=== PATIENT | male | born 1940 | race Caucasian/White ===

== ENCOUNTER 2016-11-29 19:39 | Inpatient (IN) | payer MEDICARE, OTHER ==
[~2016-11-29] VITALS: Ht 177.8 cm; Wt 76.2 kg
--- NOTE | ~2016-11-29 | ECHO ---
[facility] [address], [place] [address] Draft DATE OF STUDY: 11/30/2016 TYPE OF STUDY: Echocardiogram. REFERRING PHYSICIAN: Abigail Rubio MD INDICATION: Abnormal EKG and hypertension. PATIENT DATA: Height 177.8 cm, weight 81.7 kilograms. BSA 2.0 meter squared. CONCLUSIONS: 1. Overall, left ventricular systolic function is normal, with a visually estimated ejection fraction of 60% to 65%. 2. Mild, grade 1 left ventricular diastolic dysfunction is present. 3. The right ventricle is normal in size, with normal systolic function. 4. By evaluation of the color Doppler study, there is moderate aortic insufficiency. 5. The ascending aorta is moderately dilated, measuring 4.5 cm at the sinuses of Valsalva. FINDINGS: ECG rhythm: Normal sinus rhythm. STUDY: A 2-dimensional transthoracic echocardiogram with M-mode, spectral and color flow Doppler was performed. This was a technically adequate study: INTERPRETATION: 1. Left ventricle: Overall left ventricular systolic function is normal, with a visually estimated ejection fraction of 60% to 65%. The left ventricle is normal in cavitary dimensions, with mild concentric left ventricular hypertrophy. No regional wall motion abnormalities are noted. The diastolic filling pattern indicates mildly impaired relaxation, consistent with grade 1 diastolic dysfunction. 2. Right ventricle: The right ventricle is normal in size, with normal systolic function. 3. Left atrium: The left atrium is normal in size. 4. Right atrium: The right atrium is mildly dilated. 5. Aortic valve: The aortic valve is trileaflet, mildly thickened and calcified. There is no evidence of aortic stenosis. There is moderate aortic insufficiency, with an eccentric regurgitant jet directed below the anterior mitral leaflet. 6. Mitral valve: The mitral valve has moderate annular calcification, extending into the posterior mitral leaflet, which is moderately thickened and restricted. However, there is no evidence of mitral stenosis. The anterior leaflet is elongated and mildly thickened. The aortic PATIENT NAME: JEWELS DANIEL ECHOCARDIOGRAM DATE OF : 38 PHYSICIAN: ELLEN BOYER MD REPORT #: [id number] REPORT IS CONFIDENTIAL AND NOT TO BE RELEASED WITHOUT AUTHORIZATION [facility] [address], [place] [address] Draft insufficiency does not cause early closure of the mitral leaflets. 7. Tricuspid valve: The tricuspid valve is structurally normal, with no prolapse or stenosis. There is trace tricuspid regurgitation. The Doppler study reveals no evidence of pulmonary hypertension. The peak right ventricular systolic pressure (peak pulmonary artery systolic pressure), as measured by Doppler, is 29.9 mmHg. 8. Pulmonic valve: The pulmonic valve appears structurally normal. There is mild pulmonic insufficiency. 9. Pericardium: There is no pericardial effusion. 10. IVC/hepatic veins: The IVC was not well visualized. 11. Aorta: The ascending aorta was not well visualized. The sinuses of Valsalva are mildly dilated, measuring 4.5 cm. 12. Mass: No thrombi, vegetations or masses are identified. 13. Shunt: No atrial septal defect or ventricular septal defect is identified. MEASUREMENTS: Left ventricle 2-D measurements IVSd 1.2 cm, LVIDd 5.5 cm, LVPWd 1.3 cm, LVIDs 3.8 cm. Percent FS 31%, aortic diameter 4.5 cm, LV outflow tract diameter 2.5 cm, left atrial diameter 3.9 cm. Left atrial volume index 25.75 mL per meter squared. Right atrial diameter 5.7 cm. Right ventricle RVIDd 3.1 cm, IVC . Doppler findings: Mitral valve measurements E velocity 0.6 meters per second, mitral valve deceleration time 231 milliseconds. Mitral valve A velocity 1.0 meters per second. Mitral valve area 3.3 cm2. Lateral E prime 0.07 meters per second, lateral E/E prime 8.8, septal E prime 0.04 meters per second. Septal E/E prime 15.2. Tricuspid valve TRV max 2.2 meters per second, aortic valve LVOT V max 1.1 meters per second. LVOT max PG 5 mmHg. Aortic valve V max 2.1 meters per second, aortic valve max PG 17 mmHg. Aortic valve mean PG 10 mmHg, aortic valve area 2.5 cm2, aortic valve pressure half time 240 milliseconds. Ellen Boyer MD / [id number] P P PATIENT NAME: JEWELS DANIEL ECHOCARDIOGRAM DATE OF : 38 PHYSICIAN: ELLEN BOYER MD REPORT #: [id number] REPORT IS CONFIDENTIAL AND NOT TO BE RELEASED WITHOUT AUTHORIZATION
--- NOTE | 2016-11-29 19:10 | NUR ---
PT ARRIVED FROM [facility], PT ARRIVED WITH A NG TUBE IN PLACE AND IV NS IN STRAIGHT TUBING. MD ROY WAS CALLED AND HE IS ON HIS WAY TO ASSESS THIS PT. PT HAS A DX OF SBO. PT DENIES PAIN AT THIS TIME.
--- NOTE | 2016-11-29 20:06 | NUR ---
76YR OLD MAN ADMITTED FROM [facility] TO ROOM 112 VIA STRETCHER AND EMS CREW. PT IS ALERT, COOPERATIVE. MOVED TO BED WITH MIN ASSIST. NG TUBE IN PLACE AND SECURED IN PLACE WITH TAPE. CONNECTED TO LOW INTERMITTENT SUCTION. UNDRESSED AND PLACED INTO GOWN.ORIENTED TO ROOM AND CALL LIGHT. DR ROY NOTIFIED OFF ARRIVAL.
--- NOTE | 2016-11-29 21:53 | NUR ---
PT IS RESTING IN BED AT THIS TIME. PT STILL DENIES PAIN, PT HAS BOWEL SOUNDS IN ALL FOUR QUADRANTS, PT HAD A RUNNY BM X1. PT STATED THAT HE HAS BEEN HAVING RUNNY BM'S FOR THE PAST TWO MONTHS. PT ALSO VOIDED, URINE IS RAFY IN COLOR. ALL LUNG LOBES ARE CLEAR, HR HAS S1 AND S2. NO EDEMA OF ANY KIND HAS BEEN NOTED. ABD IS NOT DISTENDED.
--- NOTE | 2016-11-29 22:45 | NUR ---
1. BAG OF POTASSUM IS RUNNING. PT IS COMPLAINING OF HIS IV SITE HURTING. IV SITE IS STILL PATENT. I HAVE REDUCED POTASSIUM IV RATE FROM 100ML/HR TO 75ML/HR, AND IT IS RUNNING WITH HIS D5%LR @125ML/HR. MD VILLA IS AWARE AND IS OK WITH THIS. PT NOW HAS NO PAIN AT IV SITE.
--- NOTE | 2016-11-29 23:57 | NUR ---
PT IS ON TELE NOW DUE TO ABNORMAL EKG AND LOW POTASSIUM.
--- NOTE | 2016-11-30 01:40 | NUR ---
THUS FAR, NG TUBE HAD TO BE FLUSHED SEVERAL TIMES DUE TO CLOGGING. PT HAD AN EPISODE OF NAUSEA FOR WHICH 8MG OF IV ZOFRAN WAS GIVEN. SBP WAS 115 AND THEREFORE LOPRESSOR 50MG WAS HELD. PT AT THIS TIME IS RESTING IN BED.
--- NOTE | 2016-11-30 03:15 | NUR ---
PT THUS FAR HAD BM X3 VERY RUNNY WITH AND WITHOUT JUNO BLOOD, PT ALSO HAD 450ML OF NG TUBE OUTPUT THUS FAR, DARK RED TO BROWN IN COLOR. ALL QAUDRANTS AT THIS TIME ARE ABSENT OF BOWEL TONES. PT DENIES PAIN OR INCREASED ABD DISTENTION. WILL CONTIUNUE TO MOINITOR.
--- NOTE | 2016-11-30 04:41 | NUR ---
ASSISTED PT TO BATHROOM, BM X1 RUNNY WITH JUNO BLOOD, URINE OUTPUT HAS DECREASED IN THE PAST FEW HRS AND AT THIS TIME IS NOT ADEQUATE. WILL BLADDER SCAN AROUND 0500.
--- NOTE | 2016-11-30 04:59 | NUR ---
PT IS ON TELE #4 DUE TO ABNORMAL EKG. PT HAD SEVERAL BM'S THAT WERE ALWAYS RUNNY. SOME HAD JUNO BLOOD PRESENT IN THEM. URINE OUTPUT HAS DECREASED AND WILL BLADDER SCAN AT AROUND 0500 TO JUST SEE. NG TUBE OUTPUT AT 0300 WAS 450ML AND IS BROWN TO RED IN COLOR. PT DENIES PAIN. ALL QUADRANTS AT THE MOMENT DO NOT HAVE ANY BOWEL TONES. WILL EVALUATE AGAIN AROUND 0600. 0200 LOPRESSOR WAS HELD DUE TO SBP NOT MEETING ADMINISTRATION PARAMATER.
--- NOTE | 2016-11-30 07:00 | CONS ---
[facility] [address], [place] [address] Signed CONSULTATION DATE: 11/29/2016 REFERRING PHYSICIAN: Scott Singh M.D. CHIEF COMPLAINT: Nausea, vomiting, and dehydration. HISTORY OF PRESENT ILLNESS: Jordi is a 76-year-old gentleman who was grafted in the [place], has spent a couple of years in the . 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 He has been a now for 3 years, but he has 2 children, one over in [place], [place], and the other one down in the [place]. He said he smoked a little bit in high school, but none since. He drank a little bit in the but none since. Earlier this month around 11/08/2016, he had some abdominal distention with nausea, vomiting, and dehydration. He said he first ignored because he has a history of chronic dry heaves for reasons that are not clear. Finally, he went to [facility] in [place] and they transferred him up to [facility] with concerns of a bowel obstruction. He received a CT scan of the abdomen and pelvis at [facility] and there was mention of possible left-sided colitis with a narrowed rectosigmoid junction. He underwent a small bowel followthrough the following morning and there was no evidence of a small-bowel obstruction. Again, he had moderate colon dilation. He seemed to pass a lot of gas, was tolerating a liquid diet, so they sent him home the following morning. He was encouraged then to follow up with a sas developer or surgeon. He was actually scheduled to see me in my office tomorrow morning. However, he developed recurrent abdominal distention with nausea, vomiting, dehydration, so went back to [facility]. They had called me earlier this afternoon and asked if we could bring him up to [facility] in [place], [place] for evaluation. He has an NG tube in place with some green bilious fluid, but otherwise clear. He thinks he has passed some gas yesterday, but is not sure about today. He said he has been on a liquid diet the last 2-3 weeks and he said he has lost some weight and he is feeling weak. Otherwise, he seems stable. He is now here in more in the process of admitting him. PAST MEDICAL HISTORY: 1. Hypertension. 2. Prostate cancer [place] [address] Jah Lucero, status post TURP, followed by a prostate biopsies and radiation therapy for which he had done in [place], [place]. 3. 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 4. He has chronic external hemorrhoids. 5. He had skin cancer removed from his left ear and he has chronic dry heaves. PAST SURGICAL HISTORY: Electronically Signed By: MANNY ROY MD 11/30/16 0700 PATIENT NAME: KRISTOPHER DANIEL CONSULTATION DATE OF : 38 PHYSICIAN: MANNY ROY MD REPORT #: [id number] REPORT IS CONFIDENTIAL AND NOT TO BE RELEASED WITHOUT AUTHORIZATION [facility] [address], [place] [address] Signed He had a TURP with Dr. Lucero and then later, he had prostate biopsies also with Dr. Lucero. SOCIAL HISTORY: He smoked a little in high school but not since. He drank a little in the in his early 20s, but not since. He is now a for 3 years. He has 2 children, again 1 in [place], [place], the other down in the [place]. He is a F[employer]. Dr. Tono Navarrete is his primary care provider. He worked as a mortgage branch manager for years, doing wheat and cattle. FAMILY HISTORY: Father apparently was slow to wake up from anesthesia. He had trouble with several heart attacks and finally . Mother was a smoker and ended up with lung cancers. REVIEW OF SYSTEMS: Jordi told me he has never had a colonoscopy previously. He does have upper and lower dentures. He said he has no knowledge of being diabetic or being a diet controlled diabetic as I saw in the notes. ALLERGIES: NONE. MEDICATIONS: 1. Lisinopril/hydrochlorothiazide (20/12.5 mg) one tablet p.o. b.i.d. 2. Metoprolol XL 50 mg p.o. daily. 3. Multivitamin 1 tablet p.o. daily. 4. Aspirin 81 mg p.o. daily. PHYSICAL EXAMINATION: VITAL SIGNS: His blood pressure is 105/56, his heart rate 95, respiratory rate 16, temperature is 99.1 degrees, and he is 93% on 2 liters nasal cannula. He is 170 pounds at 5 foot 10 inches. GENERAL: Jordi is a 76-year-old gentleman who is lying supine in his hospital bed. He is thin, but does not appear systemically ill or toxic. LUNGS: Clear to auscultation bilaterally. HEART: Regular rate and rhythm without murmurs. ABDOMEN: Cystoscopy little bit of distention to probable mild to moderate, but he did not think that was particularly out of the normal. It is soft. He is nontender. He has a 1 cm reducible umbilical hernia with our nurse in the room helping up in the left lateral decubitus position and he does have external hemorrhoids on both sides, moderate in size and then in the posterior midline. He has an external hemorrhoid that is quite beefy and I am sure that is part of why his stool came back guaiac positive. Prostate is nearly gone Electronically Signed By: MANNY ROY MD 11/30/16 0700 PATIENT NAME: KRISTOPHER DANIEL CONSULTATION DATE OF : 38 PHYSICIAN: MANNY ROY MD REPORT #: [id number] REPORT IS CONFIDENTIAL AND NOT TO BE RELEASED WITHOUT AUTHORIZATION [facility] [address], [place] [address] Signed maybe third of its left to palpation. No dominant nodule that I could feel. LABORATORY DATA: His white blood count 7.0, hemoglobin 13.4, neutrophils are 66, and potassium is 3.0. His BUN is 51, creatinine is 1.40, and glucose 139. His liver function tests are negative. Albumin is 2.8. Lactic acid is 1.7. The CEA has not been sent. RADIOGRAPHIC STUDIES: The CT scan of port on 11/08/2016 from [facility] is reviewed and it mentions left-sided colitis along with a narrow rectosigmoid junction and then the small bowel follow-through on 11/09/2016 from [facility] reveals no small-bowel obstruction, but moderate colon distention. ASSESSMENT AND PLAN: Kristopher is a 76-year-old gentleman who certainly has some nausea, vomiting, dehydration with hypokalemia. He may have something at the rectosigmoid junction which is not sure yet. At this point, he is going to be admitted. IV fluids. We are going to replace his hypokalemia and keep his NG tube in his stomach. We will repeat the labs in the morning and probably at least some abdominal x-rays. If he can open up a bit, we will give him a bowel prep and we will do his upper and lower endoscopy and see what we find particularly with respect to the rectosigmoid junction. I have reviewed this with Jordi. He is expressed understanding and agrees with the above plan. Manny Roy M.D. / [id number] P P Moises Navarrete M.D. Electronically Signed By: MANNY ROY MD 11/30/16 0700 PATIENT NAME: KRISTOPHER DANIEL Jessica CONSULTATION DATE OF : 38 PHYSICIAN: MANNY ROY MD REPORT #: [id number] REPORT IS CONFIDENTIAL AND NOT TO BE RELEASED WITHOUT AUTHORIZATION
--- NOTE | 2016-11-30 07:06 | EKG ---
[facility] [address] [facility] [place] [address] Signed Sinus rhythm with occasional premature ventricular complexes and premature atrial complexes Nonspecific intraventricular block Abnormal QRS-T angle, consider primary T wave abnormality Abnormal ECG No previous ECGs available Confirmed by RADHA CUELLO MD ([id number]) on 11/30/2016 7:06:41 AM Electronically Signed By: RADHA CUELLO MD 11/30/16 0706 PATIENT NAME: JEWELS DANIEL Electrocardiogram DATE OF : 38 PHYSICIAN: RADHA CUELLO MD REPORT #: [id number] REPORT IS CONFIDENTIAL AND NOT TO BE RELEASED WITHOUT AUTHORIZATION
--- NOTE | 2016-11-30 07:19 | NUR ---
RECEIVED BEDSIDE REPORT FROM NORBERTO PINA AT 0710. PT LYING IN BED. NG TUBE WITH LIS. 550CC OUTPUT FOR BUSINESS SUPPORT LIAISON OF DARK BROWN/RED OUTPUT. IVF @ 125. TELE [address] PT SBA TO BATHROOM. DIARRHEA. KIRILL CAME TO EVALUATE PT, BUT PT IN BATHROOM. WILL WATCH FOR LABS THIS MORNING. NG TUBE FLUSHED WITH 10CC WATER TO UNCLOG TUBING. PT DEMEANOR WITHDRAWN.
--- NOTE | 2016-11-30 09:24 | NUR ---
CLAMPED NG TUBE. WILL ALLOW PT TO ATTEMPT DRINKING BOWEL PREP. SHAYLEE IN TO SPEAK TO PT NOW. WILL WATCH FOR NAUSEA WITH NG CLAMPED AND FLUID INTAKE.
--- NOTE | 2016-11-30 10:57 | NUR ---
PT IS RESTING SAFELY IN BED WITH CALL LIGHT IN REACH VISITING WITH . VITASL TAKEN. PT DID NOT NEED ANYTHING AT THE MOMENT. *PT's BM HAVE SPOTS OF BRIGHT RED BLOOD, NURSE AWARE.
--- NOTE | 2016-11-30 11:16 | NUR ---
PT SLOWLY DRINKING GATORADE/MIRALAX. TOLERATING WELL SO FAR. NO NAUSEA. VISITOR AT BEDSIDE.
--- NOTE | 2016-11-30 13:56 | NUR ---
PT TOLERATING CLEAR LIQUID DIET. NO NAUSEA. BT ACTIVE.
--- NOTE | 2016-11-30 13:58 | NUR ---
PT IN BED, KIND OF IN A TWISTED POSITION, BUT SEEMS TO BE COMFORTABLE. NG TUBE, LOOKING FOR SOURCE OF SBO. PT TO HAVE SCOPE TOMORROW. HE MENTIONED THAT HE HAS NEVER HAD ONE BEFORE. DISCUSSED WHAT HE CAN EXPECT, PT REQUESTED PRAYER. PT MENTIONED TODAY IS ACTUALLY A GOOD DAY. WILL CONTINUE TO FOLLOW
--- NOTE | 2016-11-30 14:10 | NUR ---
PT IS HAVING TO MAKE FREQUENT TRIPS TO THE BATHROOM, BMS ARE LOOSE AND HAVE SPOTS OF BLOOD IN THEM. VITALS TAKEN. PT REFUSED SHOWER AND DOESN NOT NEED ANYTHING ELSE AT THE MOMENT
--- NOTE | 2016-11-30 16:03 | NUR ---
PT IS RESTING IN BED, STILL MAKING FREQUENT TRIPS TO BATHROOM. DOES NOT NEED ANYTHING AT THE MOMENT.
--- NOTE | 2016-11-30 17:34 | NUR ---
STOOL SAMPLE SENT TO LAB THIS MORNING. SBA TO BSC. DIARRHEA D/T BOWEL PREP. CLEAR LIQUID DIET-- TOLERATING WELL. NEEDS ENCOURAGED TO DRINK BOWEL PREP. NG TUBE CLAMPED. TELE 4. SCOPE TOMORROW WITH KIRILL. D5LR @ 125. CALCIUM GLUCONATE RIDER GIVEN. LOPRESSOR HELD TODAY D/T LOW BP.
--- NOTE | 2016-11-30 18:29 | NUR ---
PT IS RESTING IN BED VISITING WITH FAMILY STILL MAKING FREQUENT TRIPS TO BATHROOM.
--- NOTE | 2016-11-30 21:12 | NUR ---
PT ASSESSMENT COMPLETE. PT DENIES ANY PAIN, N/V, SOB. PT HAS NG TUBE THAT IS CLAMPED. PT JUST FINISHED DRINKING BOWEL PREP, TOLERATED WELL. PT HAVING FREQUENT LOOSE BM'S. PT SBA/INDEPENDENT TO COMMODE, TOLERATING WELL. IV FLUIDS INFUSING WITHOUT DIFFICULTY. PT ON ROOM AIR. PT ON TELEMETRY, SINUS TACH, HR 102. LOPRESSOR HELD D/T BP OUTSIDE PARAMETER. CALL LIGHT WITHIN REACH. PT DENIES ANY FURTHER NEEDS AT THIS TIME.
--- NOTE | 2016-12-01 00:10 | NUR ---
PT HAS BEEN UP USING BEDSIDE COMMODE SEVERAL TIMES OVER LAST FEW HOURS. PT HAVING MULTIPLE LOOSE STOOLS FROM BOWEL PREP. PT NPO FOR COLONOSCOPY THIS AM. PT ON TELEMETRY, SINUS TACH, HR 110. NG TUBE REMAINS CLAMPED. IV FLUIDS INFUSING WITHOUT DIFFICULTY. PT CONTINUES TO DENY PAIN OR DISCOMFORT. CALL LIGHT WITHIN REACH.
--- NOTE | 2016-12-01 04:47 | NUR ---
PT SLEEPING, RR EVEN AND UNLABORED. PT APPEARS COMFORTABLE. IV FLUIDS INFUSING WITHOUT DIFFICULTY. PT ON TELEMETRY, SINUS RHYTHM, HR 90. CALL LIGHT WITHIN REACH.
--- NOTE | 2016-12-01 07:26 | NUR ---
BEDSIDE REPORT RECEIVED FROM JONNY PINA AT 0710. PT RESTING QUIETLY IN BED. IVF @ 85ML/HR. TELE [address] SINUS RHYTHM[address] NPO UNTIL SCOPE THIS MORNING. SCHEDULED FOR 1000. NG CLAMPED. LABS PENDING. CALL LIGHT WITHIN REACH.
--- NOTE | 2016-12-01 08:59 | NUR ---
PT OFF FLOOR TO COLONOSCOPY NOW. IV FOUND INFILTRATED AT TIME OF MORNING MEDS. LEFT ARM VERY TIGHT FROM MID-BICEP TO MID-FOREARM. PT DROWSY. ENEMA GIVEN PER ORDER. UNABLE TO GIVE PROTONIX D/T IV INFILTRATION. HEPARIN GIVEN.
--- NOTE | 2016-12-01 09:11 | NUR ---
PT HAD SOME INCONTINENCE OF BM HELPED CLEAN HIM UP AND CHANGED LINENS. THEN [facility], PT HEADED FOR PROCEDURE.
[2016-12-01] MEDS ORDERED: LISINOPRIL-HCT1 EACH PO (10:24)
[2016-12-01] MEDS ORDERED: METOPROLOL SUCC50 MG PO (10:24)
--- NOTE | 2016-12-01 10:25 | NUR ---
MED REC COMPLETE WITH PATIENT REFILL HISTORY AT [facility].
--- NOTE | 2016-12-01 10:29 | NUR ---
12/01/16 Irlanda9 Maddy Medina REPORT FROM MARY CARMEN PINA.
--- NOTE | 2016-12-01 11:42 | NUR ---
POTASSIUM 2.5. RESULTS RECEIVED AT 1030. COUNT ROOM CLERK, JORDYN, NOTIFIED. KIRILL NOTIFIED. ORDERS TO START K RIDER AND FOLLOW WITH BMP, THEN NOTIFY KIRILL OF RESULTS RECEIVED VIA TELEPHONE FROM DR ROY. HOSPITALIST AWARE. JORDYN RN NOTIFIED OF PLAN. PHARMACY TO BRING K RIDER TO PACU TO START.
--- NOTE | 2016-12-01 12:19 | NUR ---
pt back to floor 1055 with Nyla PINA. Marianna, daughter, called to update on pt condition now. Will be in this evening to see pt. VSS. BP soft.
--- NOTE | 2016-12-01 13:50 | NUR ---
MIRALAX GATORADE PROVIDED. PT RESTING QUIETLY. NO COMPLAINTS.
--- NOTE | 2016-12-01 14:16 | NUR ---
PT IS RESTING IN BED WITH EYES CLOSED AND RESPERATIONS EVEN. PT DID NOT NEED ANYTHING AT THE MOMENT. REMINDED PT TO DRINK HIS BOWEL PREP.
--- NOTE | 2016-12-01 17:27 | NUR ---
COLONOSCOPY THIS MORNING. MIRALAX PREP AGAIN THIS EVENING. TELE 4. D5LR @ 125. K RIDER FOR K 2.5. CLEAR LIQUID DIET. PICS ON CHART. FAMILY/PT HAS NOT BEEN TOLD ABOUT RESULTS.
--- NOTE | 2016-12-01 19:38 | NUR ---
DAYSHIFT YOVANI PHILLIP AND NIGHT RN SURGERY ICU [place] SPOKE WITH DR ROY REGARDING THE POSSIBLE NEED FOR A PICC LINE D/T LIMITED IV ACCESS. RECEVIED NEW ORDERS FOR PO 20 MEQ POTASSIUM x1 NOW, BMP IN AM, D/C IV POTASSIUM, D/C NG TUBE.
--- NOTE | 2016-12-01 19:43 | NUR ---
CALLED DR CUELLO TO UPDATE ON NEW ORDERS RECEIVED FROM DR ROY, NO NEW ORDERS RECEIVED AT THIS TIME.
--- NOTE | 2016-12-01 20:00 | NUR ---
PT ASSESSMENT COMPLETE. PT DENIES ANY PAIN, N/V, SOB. PT IV FLUIDS INFUSING WITHOUT DIFFICULTY, NEED TO CLOSELY MONITOR IV ACCESS IT IS LIMITED. NEW IV STARTED PER MD ORDERS. D/C'D NG TUBE, PT TOLERATED WELL. FAMILY AT BEDSIDE. PT ON TELEMETRY, SINUS TACH, HR 109. PT ON 2 LPM O2 VIA NASAL CANNULA. PT ATTEMPTING TO EAT PUDDING PT ADVANCED TO FULL LIQUID, SO FAR PT TOLERATING WELL. CALL LIGHT WITHIN REACH. PT DENIES ANY FURTHER NEEDS AT THIS TIME.
--- NOTE | 2016-12-01 23:47 | NUR ---
PT SLEEPING, RR EVEN AND UNLABORED. PT APPEARS COMFORTABLE AT THIS TIME. PT ON TELEMETRY, SINUS RHYTHM, HR 96. IV FLUIDS INFUSING WITHOUT DIFFICULTY. CALL LIGHT WITHIN REACH.
--- NOTE | 2016-12-02 04:38 | NUR ---
PT SITTING UP IN BED EATING PUDDING AND DRINKING WATER. IV FLUIDS INFUSING WITHOUT DIFFICULTY. PT ON TELEMETRY, SINUS TACH, HR 106. CALL LIGHT WITHIN REACH. PT DENIES ANY NEEDS AT THIS TIME.
--- NOTE | 2016-12-02 05:52 | NUR ---
PT HAD AN UNEVENTFUL NIGHT. PT SLEPT INTERMITTENTLY. PT UP TO BATHROOM WITH SBA, HAVING MULTIPLE LOOSE STOOLS WITH JUNO RED BLOOD. COLONOSCOPY COMPLETE YESTERDAY 12/01, TO DISCUSS RESULTS WITH PT TODAY. PT HAS LIMITED VEIN ACCESS, PICC LINE CONSULT OREDERED FOR THIS AM. IV FLUIDS D5LR+20 MEQ KCL @ 125 MLS/HR. PT ON FULL LIQUID DIET, TOLERATING WELL, DENIED ANY N/V THIS SHIFT.
--- NOTE | 2016-12-02 07:05 | NUR ---
BEDSIDE HANDOFF REPORT RECEIVED FROM PATENT ENGINEER RN. PT SLEEPING, LEFT UNDISTURBED. IV FLUIDS INFUSING D5LR+ 20K AT 125 ML/HR.
--- NOTE | 2016-12-02 08:20 | NUR ---
PT SITTING IN CHAIR. PT DENIES PAIN, STATES HE AHS MILD CRAMPING WITH EATING, DENIES NEED FOR PAIN MEDICATION. PT LUNG SOUNDS CLEAR, ON ROOM AIR. PT BOWEL TONES ACTIVE, DENIES NAUSEA, CONTINUES TO HAVE BLOODY STOOLS. IV FLUIDS INFUSING D5LR +20K AT 125 ML/HR. EDEMA NOTED TO BILATERAL UPPER EXTREMITIES, NO EDEMA NOTED TO LOWER EXTREMITIES. PT EATING SMALL AMOUNTS OF BREAKFAST. TELE #4, SINUS TACH, HR 120, BP 99/36. PT DENIES NEEDS AT THIS TIME.
--- NOTE | 2016-12-02 08:53 | NUR ---
MD NOTIFIED OF INCREASING HR AND LOW BP. MD TO ORDER HOME DOSE OF PO METOPROLOL.
--- NOTE | 2016-12-02 11:36 | NUR ---
PT ASSISTED TO BATHROOM. PT COMPLAINT OF ABDOMINAL CRAMPING, POOR APPETITE. PT ASSISTED BACK TO BED. PT DENIES NEEDS AT THIS TIME.
--- NOTE | 2016-12-02 12:51 | NUR ---
PT RESTING IN BED. PT WITH POOR APPETITE, EATING SMALL AMOUNT OF FULL LIQUID DIET. PT LUNG SOUNDS CLEAR, ON ROOM AIR. PT IV FLUIDS INFUSING TO RIGHT HAND, PATENT. EDEMA TO RIGHT ARM IMPROVING, LEFT ARM ELEVATED ON PILLOW. PT COMPLAINT OF ABDOMINAL PAIN, CRAMPING, DENIES NEED FOR PAIN MEDICATION. BOWEL TONES HYPERACTIVE, DENIES NAUSEA. PT DENIES NEEDS AT THIS TIME.
--- NOTE | 2016-12-02 13:40 | NUR ---
PT RESTING IN BED. PT COMPLAINT OF ABD PAIN, DECLINING PAIN MEDICATION AT THIS TIME. DISCUSSED PAIN MANAGEMENT WITH PT. PT DENIES NEEDS.
--- NOTE | 2016-12-02 15:28 | NUR ---
IV FLUIDS PLACED ON STANDBY FOR POTASSIUM RIDER INFUSION NOT TO EXCEED 10MEQ/HR RATE.
--- NOTE | 2016-12-02 16:15 | NUR ---
PT RESTING IN BED. PT REQUESTING TO USE RESTROOM, SBA TO BATHROOM, CONTINUES TO HAVE JUNO RED STOOLS. PT ASSISTED BACK TO BED. IV K RIDER INFUSING, CALCIUM GLUCONATE COMPLETE. PT VOICING CONCERNS ABOUT POTENTIAL SURGERY, THERAPEUTIC COMMUNICATION PROVIDED. PT DENIES NEEDS AT THIS TIME.
--- NOTE | 2016-12-02 17:17 | NUR ---
PT ALERT/ORIENTED. PT ON ROOM AIR. PT WITH EDEMA TO LEFT UPPER EXTREMITY, ELEVATE ON PILLOW. PT BOWEL TONES HYPERACTIVE, DENIES NAUSEA, CRAMPING THROUGHOUT SHIFT, DECLINING PAIN MEDICATION. PT CONTINUEING TO HAVE LOOSE JUNO RED STOOL. PT K 2.9, K RIDERS ORDERED AND INFUSING. POSSIBLE DC TOMORROW BASED ON LAB VALUES, THEN TO FOLLOW UP WITH DR ROY WITH BIOPSY RESULTS. PT VOIDING QS.
--- NOTE | 2016-12-02 18:18 | NUR ---
PT EATING DINNER, POOR APPETITE. ATE MAJORITY OF MASHED POTATOES AND PROTEIN SHAKE. PT DENIES NEEDS AT THIS TIME.
--- NOTE | 2016-12-02 18:50 | NUR ---
Patient refused shower approched several times through out the day.
--- NOTE | 2016-12-02 19:45 | NUR ---
PT ASSESSMENT COMPLETE. PT DENIES ANY PAIN, N/V, SOB. PT STATES EATING SOFT DIET TODAY AND TOLERATING WELL. IV FLUIDS INFUSING WITHOUT DIFFICULTY. FAMILY AT BEDSIDE. DAUGHTER EXPRESSED CONCERN ABOUT DISCHARGE PLAN AND WOULD LIKE DR ROY TO CALL HER, WILL PASS THIS MESSAGE ON TO MD. PT UP TO BATHROOM WITH SBA, TOLERATES AMBULATION WELL. PT ON TELEMETRY, SINUS RHYTHM, HR 86. CALL LIGHT WITHIN REACH. PT DENIES ANY FURTHER NEEDS AT THIS TIME.
--- NOTE | 2016-12-03 00:10 | NUR ---
PT SLEEPING, RR EVEN AND UNLABORED. PT APPEARS COMFORTABLE AT THIS TIME. PT ON TELEMETRY, SINUS RHYTHM, HR 85. IV FLUIDS INFUSING WITHOUT DIFFICULTY. CALL LIGHT WITHIN REACH.
--- NOTE | 2016-12-03 04:28 | NUR ---
PT UP TO BATHROOM WITH SBA, VOIDING AND HAVING LOOSE BM WITH JUNO RED BLOOD. CHANGED ATTENDS. PT BACK IN BED. IVF INFUSING WITHOUT DIFFICULTY. PT ON TELEMETRY, HR 83. CALL LIGHT WITHIN REACH.
--- NOTE | 2016-12-03 05:44 | NUR ---
PT UP TO BATHROOM WITH SBA. IV HAS INFILTRATED, TIGHT AND SWOLLEN. STOPPED IV FLUIDS, ELEVATED ARM, APPLIED WARM BLANKETS. CALLED DR ROY, RECEIVED ORDERS TO D/C BOTH IV'S.
--- NOTE | 2016-12-03 06:00 | NUR ---
EXTRUSION OPERATOR UNABLE TO GET ENOUGH BLOOD AFTER SEVERAL ATTEMPTS FOR ALL TESTS NEEDING DONE TODAY, ONLY ABLE TO GET ENOUGH FOR BMP. NOTIFIED DR KIRILL MD OKAY WITH THIS. WILL CANCEL CBC ORDER UNTIL FURTHER NOTICE.
--- NOTE | 2016-12-03 06:18 | NUR ---
2ND CORPORATE EXECUTIVE IN TO ATTEMPT BLOOD DRAW, SUCCESSFUL. ALL LAB ORDERS CAN BE COMPLETED.
--- NOTE | 2016-12-03 06:19 | NUR ---
PT HAD AN UNEVENTFUL NIGHT. UP SEVERAL TIMES TO BATHROOM, LOOSE STOOLS WITH JUNO RED BLOOD. SBA WITH AMBULATION. TOLERATING PO, SOFT LOW-RESIDUE DIET. PT ON TELEMETRY, SINUS RHYTHM, HR 80'S MOST OF SHIFT. IV INFILTRATED, DC'D. PT HAS NO IV ACCESS AT THIS TIME, MD AWARE.
--- NOTE | 2016-12-03 07:10 | NUR ---
BEDSIDE HANDOFF REPORT RECIEVED FROM BATON TWIRLER RN. PT SLEEPING LEFT UNDISTURBED. PT WITHOUT IV ACCESS.
--- NOTE | 2016-12-03 08:45 | NUR ---
PT RESTIN GIN BED, EATING BREAKFAST. PT LUNG SOUNDS CLEAR, ON ROOM AIR. PT COMPLAIN TOF PAIN 2/10 TO ABD WITH SPIKES IN PAIN UP TO 4/10, DISCUSSED PAIN MANAGEMENT WITH PT, PT DECLINING PAIN MEDICATION AT THIS TIME. PT BOWEL TONES ACTIVE, TOLERATING DIET, DENIES NAUSEA. PT WITH EDEMA TO RIGHT UPPER ARM FROM IV INFILTRATION, ELEVATED ON PILLOWS. LEFT ARM EDEMA IMPROVING. PT WITH SCDS IN PLACE. PT DENIES NEEDS AT THIS TIME. PT ASKING QUESTIONS ABOUT DISCHARGE PLAN, AWAITING MD TO MAKE DISCHARGE DECISION.
--- NOTE | 2016-12-03 10:27 | NUR ---
DR CUELLO TALKED WITH ME ABOUT THIS PT AND STATES THAT SHE FEELS HE IS BECOMING OBSTRUCTED AND THINKS HE NEEDS TO STAY IN THE HOSPITAL AND BE TREATED
--- NOTE | 2016-12-03 10:30 | NUR ---
PT ASSISTED TO BATHROOM. PT CONTINUES TO HAVE LOOSE BLOODY STOOLS. PT ASSISTED BACK TO BED. PT WITH POOR APPETITE, DID NOT EAT BREAKFAST. PT DENIES NEEDS AT THIS TIME.
--- NOTE | 2016-12-03 12:00 | NUR ---
POLE SHAVER HELPER TO BECDISDE FOR R/O DVT ON BILATERAL UPPER ARMS. PT RESTING IN BED.
--- NOTE | 2016-12-03 14:30 | NUR ---
PICC RN NURSE UNABLE TO OBTAIN PICC LINE. PT REQUESTING TO USE RESTROOM, PT WITH REDNESS TO BUTTOCK, BLANCHABLE, PT STATES TENDER, BARRIER CREAM APPLIED. PT ASSISTED TO BED. PT DENIES NEEDS AT THIS TIME.
--- NOTE | 2016-12-03 14:43 | NUR ---
PICC CONSULT NOTE I WAS ASKED BY DR CUELLO TO EVALUATE GRACE FOR A POSSIBLE PICC INSERTION. GRACE HAS BEEN HAVING A LOT OF DIFFICULTY WITH MULTIPLE PERIPHERAL IV'S INFILTRATING. BOTH ARMS WERE EVALUATED FOR DVT BY DR CUELLO WITH NEGATIVE RESULTS. [facility] WAS USED TO EVALUATE BOTH UPPER ARMS AND THE RIGHT BASILIC WAS THE LARGEST STRAIGHTES VESSEL AVAILABLE. IT WAS MUCH LARGER THAN 8 FR PER [facility]. DUE TO A LARGE AMMOUNT OF SWOLLEN TISSUE, I SPOKE WITH DR CUELLO BEFORE PROCEDING HIS SKIN AND TISSUE IN BOTH UPPER ARMS IS NOT IDEAL FOR TAPING A DRESSING. DR CUELLO ENCOURAGED ME TO PROCEDE AND I AGREE THAT IT IS IN HIS BEST INTEREST AT THIS POINT. RISKS AND COMPLICATIONS OF PICC LINES WERE DISCUSSED WITH GRACE AND INFORMED CONSENT SIGNED PRIOR TO THE START OF THE PROCEDURE. FULL CDC RECOMENDATION REGARDING INFECTION PREVENTION WAS FOLLOWED FOR THE DURATION OF THE PROCEDURE. THERE WAS NO DIFFICULTY WITH IV ACCESS, GUIDE WIRE, OR DILATOR INSERTION, THE PICC ADVANCED EASILY FOR THE FIRST 15 CM WHERE I BEGAN TO ENCOUNTER RESISTANCE. MULTIPLE PASSES OF THIS AREA WERE ATTEMPTED WITH NO DIFFERENCE. THE LINE WAS ADVANCED UNTIL 8 CM WEREOUTSIDE THE PT AND A CXR WAS TAKEN WHICH SHOWED THE PICC SOMEWHERE BEHIND THE RIGHT SCAPULA. THE LINE WAS AGAIN WITHDRAWN AND MANIPULATED AND REINSERTED UNTIL RESISTANCE WAS FELT WITH 15 CM OUTSIDE THE PT. ANOTHER CXR WAS TAKEN AND AGAIN THE LINE WAS NOT IN THE DESIRED LOCATION. IT BECAME TOO DIFFICULT TO REINSERT THE LINE SO THE SITE WAS ABANDONED AND I DISCUSSED WITH DR CUELLO THAT I WAS UNABLE TO PLACE A PICC TODAY. I THEN CALLED DR ROY AND INFORMED HIM THAT I WAS UNABLE TO PLACE A PICC, THAT GRACE HAS NO IV ACCESS AT THIS POINT, AND THAT I THINK HE WOULD BENIFIT FROM HAVING A CENTRAL LINE PLACED.
--- NOTE | 2016-12-03 15:30 | NUR ---
PT CALLED DAUGHTER TO PROVIDE UPDATE ON PICC LINE, ADMISSION STATUS, AND PLAN FOR TPN. PT VERBALIZED AGREEMENT TO NOT DISCHARGING AT THIS TIME AND PROVIDING NOURISHMENT THROUGH TPN. PT DENIES NEEDS AT THIS TIME.
--- NOTE | 2016-12-03 17:55 | NUR ---
ROUNDED ON PT. PT DENIES NEEDS AT THIS TIME. PT VOICING FRUSTRATION ON BEING SICK AND WANTING TO FEEL BETTER. THERAPEUTIC COMMUNICATION AND REASSURANCE PROVIDED TO PT.
--- NOTE | 2016-12-03 18:04 | NUR ---
PT ALERT/ORIENTED. PT WITH POOR PO INTAKE, PLAN TO OBTAIN PICC AND START TPN, UNABLE TO OBTAIN PICC LINE DUE TO CATHETER NOT ADVANCING CORRECTLY, PLAN FOR CENTRAL LINE TOMORROW WITH DR. ROY. PT WITHOUT IV ACCESS, ENCOURAGE PO INTAKE. PT CONTINUES TO HAVE LOOSE BLOODY STOOL. PT VOIDING QS.
--- NOTE | 2016-12-03 20:03 | NUR ---
PT ASSESSMENT COMPLETE. PT DENIES ANY PAIN, N/V, SOB. FAMILY AT BEDSIDE. DR CUELLO IN TO UPDATE FAMILY, FAMILY STATES BEING "VERY IMPRESSED WITH HER". PT HAS NO IV ACCESS AT THIS TIME. PT ON TELEMETRY, SINUS RHTYHM, HR 83. OFFERED ENSURE. CALL LIGHT WITHIN REACH. PT DENIES ANY FURTHER NEEDS AT THIS TIME.
--- NOTE | 2016-12-04 00:30 | NUR ---
PT UP TO BATHROOM, VOIDING WELL, CONTINUES TO HAVE LOOSE STOOLS WITH JUNO RED BLOOD NOTED. CAHNGED ATTENDS. PT BACK IN BED, ENSURE GIVEN PER PT REQUEST. CALL LIGHT WITHIN REACH. PT ON TELEMETRY, SINUS RHYTHM, HR 81. PT DENIES ANY FURTHER NEEDS AT THIS TIME.
--- NOTE | 2016-12-04 04:07 | NUR ---
PT SLEEPING, RR EVEN AND UNLABORED. PT APPEARS COMFORTABLE AT THIS TIME. CALL LIGHT WITHIN REACH. PT ON TELEMETRY, SINUS RHYTHM, HR 87.
--- NOTE | 2016-12-04 07:15 | NUR ---
BEDSIDE HANDOFF REPORT RECEIVED FROM STRETCH MACHINE OPERATOR RN. PT SLEEPING, LEFT UNDISTURBED.
--- NOTE | 2016-12-04 08:00 | NUR ---
PT WITH [address] VILLA NOTIFIED. DR VILLA REQUESTING DR. ROY TO BE NOTIFIED FOR CENTRAL LINE PLACEMENT. DR. ROY CALLED, IN PROCEDURE, SPOKE WITH OR NURSE MILADY. DR. ROY ORDER TO MAKE PT NPO AND PREPARE PT FOR CENTRAL LINE PLACEMENT IN OR, ORDER TO GIVE ORAL METOPROLOL THIS AM.
--- NOTE | 2016-12-04 08:42 | NUR ---
PT TO OR FOR CENTRAL LINE PLACEMENT, CHLORAHEXADINE WIPES PERFORMED.
--- NOTE | 2016-12-04 10:13 | NUR ---
12/04/16 Vivian3 Nyla Mcintyre 1007-PATIENT ARRIVED TO PACU ON 6L MASK O2 SAT 100% PATIENT AWAKE DENIES PAIN OR NAUSEA. RIGHT IJ TO NECK 3 LUMEN 1009-CHEST XRAY AT BEDSIDE.
--- NOTE | 2016-12-04 11:24 | NUR ---
PT RECEIVED FROM PACU FROM CENTRAL LINE PLACEMENT. PT ALERT/ORIENTED. PT TRANSFERED TO BED. SCDS IN PLACE.
--- NOTE | 2016-12-04 11:25 | NUR ---
EVELIA TALKED WITH DR CUELLO YESTERDAY ABOUT THIS PT. DR ROY JOINED US AND DR CUELLO VOICED HER CONCERN ABOUT THIS PT FALLING THROUGH THE CRACKS AND VOICED THESE CONCERNS WITH DR ROY-HE STATES HE WILL KEEP PT IN HOSPITAL START THE TPN THAT DR CUELLO SUGGESTED AND THE SOLUMEDROL. ALL PARTIES AGREED THAT KEEPING PT IN THE HOSPITAL WAS A GOOD IDEA PT WAS HURTING MORE THIS MORNING.
--- NOTE | 2016-12-04 11:45 | NUR ---
PT BLOOD PRESSURE 81/35 PER VITALS MACHINE, MANUAL BP CHECKED 82/36, HR IN 60'S. PT STATES HE FEELS SLIGHTLY LIGHT HEADED. DR. ROY CALLED, UNAVAILABLE, MESSAGE LEFT WITH OR CHARGE NURSE.
--- NOTE | 2016-12-04 13:17 | NUR ---
PT RESTING IN BED. PT MORE ALERT. LR BOLUS COMPLETED, LINE HEPARIN FLUSHED. PT RECEIVED K RIDER. PT ATE 100% OF LUNCH, SOUP AND ENSURE. PT DENIES NEEDS AT THIS TIME.
--- NOTE | 2016-12-04 13:53 | NUR ---
DR. CUELLO TO BEDSIDE TO EVAULATE PT AND DISCUSS PLAN OF CARE. 500 ML SALINE BOLUS ORDER THEN TO CONTINUE NS AT 125 ML/HR. CENTRAL LINE SUTURES EXPOSED, CLEANSED WITH CHLORAPREP AND COVERED WITH TRANSPARENT DRESSING.
--- NOTE | 2016-12-04 14:49 | NUR ---
MD NOTIFIED OF HYPOTENSION, MD ORDER TO CONTINUE MONITORING AND BLADDER SCAN. BLADDER SCAN FOR 175 ML.
--- NOTE | 2016-12-04 18:30 | NUR ---
PT RECEIVED R IJ CENTRAL LINE TODAY IN OR. PT HYPOTENSIVE UPON RETURNING TO FLOOR, 1.5L FLUID BOLUS GIVEN, BLOOD PRESSURE LAST 105/43. PT WITH 23 BEATS VTACH THIS AM, K REPLACED, SR WITH PVS. PT RECEIVING TPN AND LIPIDS, NS AT 125 ML/HR. SBA TO BSC, CONTINUES TO HAVE LOOSE BLOODY STOOLS. PT VOIDED ONCE SINCE RETURNING, 175 MLS CONCENTRATED URINE, AWARE, MONITOR AND NOTIFY MD AT NEXT VITALS. SOFT LOW RESIDUE DIET, APPETITE IMPROVING BUT REMAINS INSUFFICIENT.
--- NOTE | 2016-12-04 18:40 | NUR ---
NOTIFIED OF LOW URINE OUTPUT. MD TO ORDER 500 ML LR BOLUS. CONTINUE TO MONITOR URINE OUTPUT AND NOTIFY DR IYER AT 2300 OF OUTPUT.
--- NOTE | 2016-12-04 19:10 | NUR ---
BEDSIDE REPORT RECEIVED FROM YOVANI GARDNER. PT IS RESTING IN BED, NO APPARENT DISTRESS. 1L O2 VIA NC IN PLACE. FLUIDS AND TPN/LIPIDS INFUSING THROUGH CENTRAL LINE WNL. PT DENIES NEEDS AT THIS TIME, WILL CONTINUE TO MONITOR.
--- NOTE | 2016-12-04 19:27 | NUR ---
DR ROY CALLED FOR PT UPDATE. NOTIFIED OF HYPOTENSION, FLUID BOLUS, URINE OUTPUT, ORAL INTAKE, TNP AND LIPID INFUSING. NO NEW ORDERS
--- NOTE | 2016-12-04 20:20 | NUR ---
ASSESSMENT COMPLETED. PT IS ALERT/ORIENTED, DENIES PAIN. LUNGS CLEAR, SLIGHTLY DIM IN BASES, 1L VIA NC. HR REGULAR, TELE #4. BOWEL TONES ACTIVE, ABDOMEN MODERATELY DISTENDED, DENIES NAUSEA. CB. TPN AND LIPIDS INFUSING WNL. NS @125 ML/HR INFUSING. NEW ORDERS FROM DR. IYER FOR MAG RIDER, IV K PHOS, AND IV KCl. PT CONTINUES TO HAVE LOOSE, BLOODY BM'S. ATTENDS IN PLACE. PT DENIES FURTHER REQUESTS AT THIS TIME, CALL LIGHT IS WITHIN REACH.
--- NOTE | 2016-12-04 21:51 | NUR ---
WAS INFORMED IN REPORT THAT DR. IYER WANTED TO BE NOTIFIED OF PT'S URINE OUTPUT AT [address]. [address] IYER AT THIS TIME AND INFORMED HIM THAT PT HAS VOIDED 200ML IN PAST 4 HOURS. NO NEW ORDERS RECEIVED AT THIS TIME.
--- NOTE | 2016-12-04 23:48 | NUR ---
PT CALLED BECAUSE IV PUMP WAS BEEPING, NEXT IV K RIDER STARTED. PT DENIES NEEDS AT THIS TIME.
--- NOTE | 2016-12-05 03:15 | NUR ---
PT CALLED AND REQUESTED TO GET UP TO BSC. PT HAD 300ML MIXED VOID AND LIQUID BM. BARRIER CREAM APPLIED TO REDDENED AREA ON BOTTOM. ASSESSMENT COMPLETED. LUNGS CLEAR, DIM IN BASES, 1L VIA NC. HR REGULAR, TELE #4, HR: 74. BOWEL TONES REMAIN ACTIVE, DENIES NAUSEA. ABDOMEN IS NONTENDER AND MODERATELY DISTENDED. GENERALIZED EDEMA PRESENT IN BUE. IVF, TPN, AND LIPIDS ALL INFUSING WNL. PT DENIES FURTHER REQUESTS AT THIS TIME, CALL LIGHT IS WITHIN REACH.
--- NOTE | 2016-12-05 04:06 | NUR ---
RECEIVED CALL FROM CCU RN, KRYSTLE, STATING THAT PT HAD 12 BEATS OF V.TACH. CALLED DR. IYER AND INFORMED HIM. ALL POTASSIUM INFUSIONS HAVE COMPLETED, DR. IYER STATES HE WILL CHECK LABS IN THE MORNING, NO NEW ORDERS AT THIS TIME.
--- NOTE | 2016-12-05 05:32 | NUR ---
DR. IYER NOTIFIED THAT PT HAD LOW URINE OUTPUT. UO WAS 200ML FOR PAST 8 HOURS AND SHOULD HAVE BEEN MINIMUM OF 350ML. NEW ORDERS RECEIVED: 500ML LR BOLUS ONCE AND INCREASE CURRENT IVF (D5LR) TO 125ML/HR.
--- NOTE | 2016-12-05 06:21 | NUR ---
PT SLEPT OFF AND ON THROUGHOUT SHIFT. ORIENTED. NO PAIN. LUNGS CLEAR, SLIGHLY DIM IN BASES, 1L VIA NC. HR REGULAR, TELE #4, 12 BEATS OF V.TACH AT 0400, M.D. AWARE. BOWEL TONES ACTIVE, NO NAUSEA, ABDOMEN MODERATELY DISTENDED, MULTIPLE LOOSE, BLOODY BM'S DURING NIGHT. VOIDING QS. SBA TO BSC. CENTRAL LINE IN RIGHT I.J. NS @ 125 AND TPN INFUSING. LIPIDS COMPLETED. RECEIVED IV K PHOS, 60MEQ IV KCl, AND 1 MAG RIDER DURING NIGHT. AFEBRILE, VSS.
--- NOTE | 2016-12-05 07:55 | NUR ---
PATIENT ASSISTED UP TO THE COMMODE AND HAD A LOOSE BLOODY BM. BARRIER CREAM APPLIED TO HIS BUTTOX IT IS SORE FROM HAVING BOWEL MOVEMENTS. PATIENTS LINEN CHANGED. PT'S PAIN IS TOLERABLE AT THIS TIME ONLY C/O GAS PAIN AT THIS TIME. PATIENT IS ALERT AND ORIENTED AND STEADY ON HER FEET.
--- NOTE | 2016-12-05 09:44 | NUR ---
STOOL SAMPLE COLLECTED AND SENT TO LAB FOR CDIFF, IV POTASSIUM STARTED AND NEW MEDICATION GIVEN FOR ULCERATIVE COLITIS. PATIENTS PAIN IS TOLERABLE AT THIS TIME AND HE DENIES NEEDS NOW.
--- NOTE | 2016-12-05 10:53 | NUR ---
PATIENT'S I AND O COMPLETE AT THIS TIME, PT RESTING IN BED WITH HOB ELEVATED.
--- NOTE | 2016-12-05 11:10 | NUR ---
SECOND STOOL SAMPLE SENT TO LAB FOR CDIFF SAMPLE. ALEX CARE DONE AND BARRIER CREAM APPLIED TO BUTTOX.
--- NOTE | 2016-12-05 13:00 | NUR ---
PATIENT ASSESSMENT BY DOCTOR JAYLON DONE AT THIS TIME, PT HAD AN ACCIDENT IN HIS PANTS AND ATTENDS CHANGED. PATIENT STILL IS PASSING ALOT OF GAS AND HAS NO C/O PAIN JUST A SORE BOTTOM FROM THE BOWEL MOVEMENTS, BARRIAR CREAM APPLIED.
--- NOTE | 2016-12-05 14:28 | NUR ---
PATIENT SCHEDULED MEDICATION GIVEN AND 5 UNITS OF INSULIN GIVEN SQ.
--- NOTE | 2016-12-05 14:45 | NUR ---
patient sitting up in bed visiting on the phone. iv kcl hung and running
--- NOTE | 2016-12-05 15:46 | NUR ---
NEW BAG OF TPN HUNG AND DOUBLE CHECKED WITH LATA IN PHARMACY. PATIENT IS FEELING GOOD THIS AFTERNOON, NO COMPLAINTS OR NEEDS AT THIS TIME.
--- NOTE | 2016-12-05 16:42 | NUR ---
BLOOD SUGAR CHECK DONE AT THIS TIME 280 AT THIS TIME.
--- NOTE | 2016-12-05 17:03 | NUR ---
PATIENT HAD A ROUGH MORNING, WITH 9 LIQUID BOWEL MOVEMENTS THAT WERE BLOODY. 2 WERE SENT TO LAB FOR C-DIFF TESTING. PATIENT IS PASSING GAS AND IS TOLERATING A DIABETIC DIET. HE REMAINS ON TPN AND LIPIDS WITH KCL AND NA PHOS RIDERS TODAY. PATIENT IS ALERT AND ORIENTED AND IN BETTER SPIRITS TODAY, TALKATIVE AND TELLING STORIES TO STAFF. BUTTOX IS SORE AND HEMMROIDS ARE INFLAMMED DUE TO FREQUENT BM'S BARRIER CREAM HAS BEEN APPLIED.
--- NOTE | 2016-12-05 19:10 | NUR ---
BEDSIDE SHIFT REPORT RECEIVED FROM YOVANI WESTBROOK. PT IS ALERT/ORIENTED, SITTING UP IN BED, MULTIPLE VISITORS AT BEDSIDE. IVF AND TPN INFUSING WNL. 1L VIA NC IN PLACE. SCD'S ON. DENIES NEEDS AT THIS TIME.
--- NOTE | 2016-12-05 21:05 | NUR ---
ASSESSMENT COMPLETED. PT IS ALERT/ORIENTED. DENIES PAIN. LUNGS CLEAR, DIM IN BASES, 1L VIA NC IN PLACE. HR REGULAR, TELE #4. BOWEL TONES ACTIVE, ABDOMEN MILDLY DISTENDED, NO NAUSEA. TPN AND IVF INFUSING WNL THROUGH CENTRAL LINE, NO REDNESS OR SWELLING NOTED AT SITE. CB, 3 UNITS NOVOLOG ADMINISTERED. SCD'S IN PLACE. SWELLING TO BUE APPEARS IMPROVED FROM YESTERDAY. PT DENIES FURTHER REQUESTS AT THIS TIME, WILL CONTINUE TO MONITOR.
--- NOTE | 2016-12-05 23:00 | NUR ---
PT CALLED NEEDING TO USE THE BATHROOM, SBA WITH FWW TO BSC. PT HAD BM, CONTINUES TO BE LOOSE WITH BLOOD PRESENT. INTACT PILL NOTED IN STOOL, INFORMED DR. IYER, WILL INFORM DR. ROY IN THE MORNING. REDNESS TO BUTTOCKS PRESENT, BLANCHABLE, BARRIER CREAM APPLIED. PT RETURNED TO BED, DENIES FURTHER REQUESTS.
--- NOTE | 2016-12-06 01:04 | NUR ---
PT CURRENTLY SLEEPING, NO APPARENT DISTRESS. 1L VIA NC IN PLACE, RESPIRATIONS EVEN AND UNLABORED. TELE #4, HR: 65-70. WILL CONTINUE TO MONITOR.
--- NOTE | 2016-12-06 02:29 | NUR ---
IN TO ADMINISTER MEDICATION, PT SLEEPING, WOKE WHEN I SPOKE TO HIM BUT FELL ASLEEP AGAIN QUICKLY. ASSESSMENT COMPLETED, NO CHANGES FROM PREVIOUS ASSESSMENT. WILL CONTINUE TO MONITOR.
--- NOTE | 2016-12-06 03:04 | NUR ---
PT CALLED TO USE BATHROOM. UP TO BSC WITH SBA. HAD 400ML STOOL/URINE MIXED. NEW ATTENDS IN PLACE. RETURNED TO BED, DENIES FURTHER REQUESTS AT THIS TIME.
--- NOTE | 2016-12-06 05:08 | NUR ---
PT HAD GOOD NIGHT, WAS ABLE TO SLEEP WELL. NO PAIN, NO NAUSEA. LUNGS CLEAR, 1.5L O2 VIA NC. TELE #4. BOWEL TONES ACTIVE, ABDOMEN MILDLY DISTENDED. CONTINUES TO HAVE LIQUID BM'S, LESS FREQUENTLY THAN DURING THE DAY THOUGH. SBA TO BSC, STEADY ON FEET. TPN AND IVF INFUSING WNL. ACCUCHECKS AND SS INSULIN. SOFT, LOW FIBER DIET. SCD'S.
--- NOTE | 2016-12-06 05:12 | NUR ---
UNEVENTFUL SHIFT, PT SLEPT MAJORITY OF NIGHT. ORIENTED WHEN AWAKE. DENIES PAIN AND NAUSEA. ABDOMEN APPEARS DISTENDED, PT REPORTS "GAS PAIN" THAT COMES AND GOES. LUNGS DIM, RA. TELE #9, IRREGULAR HR. LANE, LOW UO, 500ML LR BOLUS X1. MINIMAL EDEMA IN BILATERAL FEET. 2-PA WITH FWW, PIVOT TRANSFER TO BSC/CHAIR. D5LR @200ML/HR, IV ABX: ROCEPHIN. DYSPHAGIA-CHOPPED DIET, NECTAR THICK LIQUIDS, POOR APPETITE.
--- NOTE | 2016-12-06 07:52 | NUR ---
PATIENT WAS AWAKE, I ASKED HIM IF HE WOULD LIKE A SHOWER, HE SAID LATER ON IN THE DAY, HE WILL DO HIS AM CARE AFTER BREAKFAST.
--- NOTE | 2016-12-06 08:15 | NUR ---
STAND BY ASSIST PATIENT TO THE CHAIR. ORAL CARE DONE. FACE WASHED. LINENES CHANGED. PATIENT WOULD LIKE TO CALL WHEN HE IS READY FOR A SHOWER THIS AM.
--- NOTE | 2016-12-06 08:25 | NUR ---
RECEIEVED BEDSIDE REPORT FROM YOVANI PLASENCIA. PT AWAKE AND ALERT, EATING BREAKFAST. PT SBA TO CHAIR, SKIN INTACT ON BACKSIDE. TPN RUNNING IN CENTRAL LINE. DRESSING ON R UPPER ARM C/D/I. DRESSING ON R IJ SMALL AMOUNT OF BLOOD ON DISK, DRY, INTACT.
--- NOTE | 2016-12-06 12:19 | NUR ---
ADVISED DR IYER PT BLOOD SUGAR AT LUNCH WAS 392. NO ORDERS AT THIS TIME.
--- NOTE | 2016-12-06 14:42 | NUR ---
PT UP TO CHAIR AND TOILET. PT STATES ABDOMEN IS AT BASELINE FROM NOT WORKING. PT STATES ABD IS NO LONGER TENDER OR PAINFUL, BUT SEEMS ABOUT NORMAL "FOR THE PAST COUPLE YEARS". PT TOLERATING PO INTAKE WELL. PT WOULD LIKE A SHOWER WHEN TPN IS COMPLETE.
--- NOTE | 2016-12-06 16:05 | NUR ---
CONSULTED WITH [employer] RE: ORDERED TRACE ELECTROLYTES BEING DIFFERENT THAN LISTED ELECTROLYTES ON BAG. PHARMACY STATED IT WAS A CHANGE IN CLERICAL ADMINISTRATOR GUIDELINES.
--- NOTE | 2016-12-06 16:30 | NUR ---
PT UP TO SHOWER WITH FLAT BREAKDOWN PROCESSOR. NEW BAG OF TPN STARTED. PT READY TO WALK IN HALLS WITH FLAT BREAKDOWN PROCESSOR.
--- NOTE | 2016-12-06 16:44 | NUR ---
PT WALKED 3 LAPS AROUND THE UNIT WITH GUIDE EXCURSION ASSISTANCE. GUIDE EXCURSION REPORTED PT WAS STABLE.
--- NOTE | 2016-12-06 18:20 | NUR ---
PT UP IN CHAIR MOST OF SHIFT. TOLERATING PO SOFT, LOW FIBER DIET WELL. NO C/O NAUSEA, ABD PAIN. PT STATES ABD APPEARS NORMAL TO HIM, STATING "ITS FROM NOT WORKING FOR SEVERAL YEARS." PT HAD 4 LOOSE, BLOODY BM THIS SHIFT. PT REPORTS IT SEEMS THE BMS ARE LESS FREQUENT. PT C/O EDEMA IN LOWER LEGS BILAT. PT DECLINED TO HAVE HIS FEET UP WHILE IN THE CHAIR. PT TOLERATING TPN WELL. K-RIDERS X3 THIS SHIFT, SODIUM PHOSPHATE RIDER THIS SHIFT, PO POTTASSIUM THIS SHIFT. PT UP AMBULATING IN [place] WITH GROUP FITNESS MANAGER.
--- NOTE | 2016-12-06 19:58 | NUR ---
PT UP TO BATHROOM WITH SBA. TOLERATES AMBULATION WELL. IV FLUIDS INFUSING WITHOUT DIFFICULTY THROUGH CENTRAL LINE, PATENT AND INTACT. PT IN GOOD SPIRITS THIS EVENING. ABDOMEN DISTENDED, NONTENDER WITH PALPATION. CALL LIGHT WITHIN REACH. PT DENIES ANY FURTHER NEEDS AT THIS TIME.
--- NOTE | 2016-12-06 20:50 | NUR ---
PT ASSESSMENT COMPLETE. PT DENIES ANY PAIN, N/V. PT ON ROOM AIR, STATES GETTING SOB WITH EXERTION "BUT IF I SIT HERE A MINUTE IT GOES AWAY". PT VOIDING WITHOUT DIFFICULTY. PT HAVING LOOSE STOOLS WITH SMALL AMOUNT OF JUNO RED BLOOD WITH WIPING, BARRIER CREAM APPLIED TO BUTTOCKS FOR BLANCHABLE REDNESS. FAMILY AT BEDSIDE. CALL LIGHT WITHIN REACH. PT DENIES ANY FURTHER NEEDS AT THIS TIME.
--- NOTE | 2016-12-07 00:16 | NUR ---
PT UP TO BATHROOM, PT CONTINUES TO HAVE LOOSE STOOLS WITH JUNO RED BLOOD. CHANGED ATTENDS, BARRIER CREAM APPLIED. PT NOW RESTING IN BED. CALL LIGHT WITHIN REACH. PT DENIES ANY FURTHER NEEDS AT THIS TIME.
--- NOTE | 2016-12-07 04:18 | NUR ---
PT SLEEPING, RR EVEN AND UNLABORED. PT APPEARS COMFORTABLE AT THIS TIME. IV FLUIDS INFUSING WITHOUT DIFFICULTY. CALL LIGHT WITHIN REACH.
--- NOTE | 2016-12-07 08:19 | NUR ---
RECIEVED BEDSIDE REPORT FROM YOVANI BRITO. PT UP IN CHAIR, ENCOURAGED TO ELEVATE FEET WHILE IN CHAIR. PT TOLERATING ROOM AIR WELL. PT REPORTS MULTIPLE LIQUID, BLOODY BM OVERNIGHT. TPN RUNNING, FLUIDS RUNNING. PT ATE 100% OF BREAKFAST, TOLERATED WELL. PT AGREEABLE TO AMBULATION TODAY.
--- NOTE | 2016-12-07 08:40 | NUR ---
TALKED TO PATIENT ABOUT SHOWERING LATER TODAY. PATIENT UP IN CHAIR EATING BREAKFAST. NO OTHER NEEDS AT THIS TIME.
--- NOTE | 2016-12-07 09:18 | NUR ---
SPOKE WITH PATIENT IN ROOM. PATIENT LIVES ALONE, STATES HE DOES HAVE A CANE HE CAN USE FOR SUPPORT IF NEEDED. PATIENT HAS BEEN UP ON OWN IN ROOM AND AMBULATING WITH STAFF WITHOUT PROBLEMS, HE STATES. PATIENT STATES HE MAY GO STAY WITH A FRIEND OR HIS DAUGHTER IN [place] FOR A FEW DAYS AFTER DISCHARGE. DENIES OTHER BARRIERS.
--- NOTE | 2016-12-07 09:57 | NUR ---
PATIENT WAS STARTED ON TPN ON 12/04/16. HE IS RECEIVING 2 LITERS 20% DEXTROSE, 5% AMINO ACIDS, 250 ML 20% LIPIDS . HE IS ALSO EATING A SOFT, LOW-FIBER DIET AND TOLERATING WELL. BEFORE ADMISSION, HE WAS ONLY DRINKING LIQUIDS FOR A COUPLE WEEKS. NEW DIAGNOSIS OF ULCERATIVE COLITIS. GLUCOSE IS HIGH PER LAB DRAW WAS 299 THIS AM, POC GLUCOSE 324 THIS AM. PATIENT RECEIVING NOVOLOG SLIDING SCALE WITH MEALS. PREALBUMIN IS PENDING. MEDS INCLUDE SOLUMEDROL, VITAMIN K, LOPRESSOR, PROTONIX, TRAMADOL, HEPARIN, AND MESALAMINE. TPN PROVIDES AN AVERAGE OF 1,974 CALORIES PER DAY. NOT SURE WHEN DISCHARGE WILL OCCUR. CONTINUE SOFT, LOW-FIBER DIET AND TPN FOR NOW. WILL CONTINUE TO MONITOR.
--- NOTE | 2016-12-07 11:00 | NUR ---
Talked to patient about showering after lunch. Patient sitting up in chair eating.
--- NOTE | 2016-12-07 11:20 | NUR ---
DR. ROY ROUNDED ON PT. SOME MEDICATIONS DC'D. PT UP IN CHAIR WITH FEET ELEVATED.
--- NOTE | 2016-12-07 12:07 | NUR ---
PT SITTING UP IN BED, COMMENTED THAT HE IS SOMEWHAT FRUSTRATED THAT HE ISN'T BETTER. HE NEEDS TO EAT REAL FOOD, AND MOSTLY ALL HE HAS GOTTEN IS JELLO. I LET HIM VENT, AND DR ROY CAME IN. NG TUBE IS OUT. WILL CONTINUE TO FOLLOW
--- NOTE | 2016-12-07 12:56 | NUR ---
PT BACK TO BED AFTER UP TO BATHROOM HAD LOOSE STOOL, PT ADMINISTERED 15UNITS OF NOVOLOG PER MD VERBAL ORDER FOR ACCU CHECK [id number].
--- NOTE | 2016-12-07 13:00 | NUR ---
Went to see if patient is ready for shower, nurse helping patient to bed for a rest. Told him I would come back in a hour.
--- NOTE | 2016-12-07 14:00 | NUR ---
Checked on patient for a shower. He has family visiting at this time.
--- NOTE | 2016-12-07 14:30 | NUR ---
SPOKE WITH PATIENT AND HIS FRIEND JIMY IN ROOM. SHE STATES SHE IS ABLE TO TAKE HIM HOME WITH HER IN [facility] AT DISCHARGE HE ISN'T FEELING LIKE HE CAN BE HOME ALONE LATELY. SHE STATES HIS DAUGHTER, WENDY LIVES IN [facility] [place] ALSO. DISCUSSED WITH HER THAT I'D LIKE TO HAVE A CARE CONFERENCE TOMORROW OR WEDNESDAY AT LATEST I FEEL WE NEED TO DISCUSS THE OVERALL PLAN AND HIS STAY HERE. SHE STATES HIS DAUGHTER CAN'T COME TOMORROW SHE IS HAVING A BIG HOLIDAY GATHERING AND WOULD HAVE A HARD TIME LEAVING. SHE STATES SHE WILL HAVE THE DAUGHTER CALL ME. I GAVE JIMY THE CASE MANAGEMENT OFFICE NUMBER AND WILL DISCUSS WHEN A GOOD TIME TO ARRANGE THIS WHEN DAUGHTER CALLS. PT IS AGREEABLE THAT I CAN DISCUSS THIS WITH HIS DAUGHTER.
--- NOTE | 2016-12-07 15:45 | NUR ---
Patient on phone no shower at this time.
--- NOTE | 2016-12-07 15:55 | NUR ---
PT CALLED NURSE IN, STATING HE COUGHED AND HIS ABD NOW HURTS "PRETTY UNCOMFORTABLE". PT WAS TACHYPENIC, SLIGHTLY SWEATY, AND RED IN THE FACE. PT STATED THAT THE PAIN STARTED ABOUT AN HOUR AGO. PT GIVEN ULTRAM, EFFECTIVE, PT IS SLEEPING AT THIS TIME.
--- NOTE | 2016-12-07 16:00 | NUR ---
Patient resting in bed with eyes closed due to not feeling well.
--- NOTE | 2016-12-07 16:48 | NUR ---
ADVISED DR. ROY OF NEW ONSET PAIN. DR ROY AWARE OF LARGE MEALS. STATED THAT HE WILL KEEP IT IN MIND. NO NEW ORDERS.
--- NOTE | 2016-12-07 19:38 | NUR ---
RECEIVED BEDSIDE REPORT FROM PIEDAD PINA. PT RESTING IN BED. PT STATES HAVING ABDOMINAL PAIN IN LEFT AND RIGHT LOWER QUADRANTS WITH COUGHING, GAVE PT BLANKET TO HELP SUPPORT ABDOMEN WITH COUGHING. IV ELECTROLYTES INFUSING AT THIS TIME WITHOUT DIFFICULTY THROUGH CENTRAL LINE. PT ON ROOM AIR. CALL LIGHT WITHIN REACH. PT DENIES ANY FURTHER NEEDS AT THIS TIME.
--- NOTE | 2016-12-08 00:47 | NUR ---
PT C/O ABD PAIN 5/, 2 TABS NORCO GIVEN. PT ALSO STARTED DRY HEAVING, ZOFRAN GIVEN. PT SITTING IN CHAIR WITH WARM BLANKET OVER ABD FOR COMFORT. CALL LIGHT WITHIN REACH. PT DENIES ANY FURTHER NEEDS AT THIS TIME.
--- NOTE | 2016-12-08 05:13 | NUR ---
PT SLEEPING, RR EVEN AND UNLABORED. PT APPEARS COMFORTABLE AT THIS TIME. CALL LIGHT WITHIN REACH.
--- NOTE | 2016-12-08 08:12 | NUR ---
RECIEVED BEDSIDE REPORT FROM YOVANI BRITO. PT SLEEPING AT SHIFT CHANGE. PT UP AND EATING BREAKFAST SITTING AT SIDE OF BED. PT REPORTS ABD MUSCLES ARE "A LITTLE SORE." DENIES ACUTE PAIN AT THIS TIME, DECLINES PRN PAIN MEDS. BT ACTIVE X4. ABD FIRM AND DISTENDED, PT REPORTS NOT TENDER. PT REPORTS FEELING BETTER AFTER BURPING. PT DECLINED MOST OF BREAKFAST DUE TO "EATING TOO MUCH TO FAST" AND AN INCREASE IN PAIN. MORNING BLOOD SUGAR 76, DRINKING ORANGE JUICE.
--- NOTE | 2016-12-08 09:10 | NUR ---
DR ROY WAS IN WITH PATIENT IN ROOM. THEY WERE DISCUSSING HIS DISCHARGE. PATIENT STATING HE WOULD LIKE TO GO HOME WITH FAMILY TODAY. THEY DISCUSSED THAT PATIENT CAN RETURN IF WORSENING, OR GO TO FACILITY IN [facility] IF THERE. DR ROY DISCUSSED WITH HIM THAT HE MAY NEED TO FOLLOWUP WITH [facility] IF HE DOESN'T START IMPROVING. PT ADAMANT HE DOESN'T WANT TO STAY IN THE HOSPITAL NOW THAT HE CAN EAT ENOUGH AND IS KEEPING FLUIDS DOWN. HE ALSO STATED HE WILL BE RETURNING TO [facility] TO STAY WITH JIMY. PT STATES HE HAS BEEN ABLE TO GET UP AND AROUND ROOM AND TO BATHROOM ON OWN AND FEELS HE CAN DO THIS AT HOME.
--- NOTE | 2016-12-08 09:19 | NUR ---
PATIENT SITTING UP IN CHAIR. WRITTING D\C ORDERS. PATIENT WANTS TO SHOWER AT HOME. LINENS CHANGED FACE AND HANDS WASHED. ORAL CARE SET UP FOR PATIENT TO USE. NO OTHER NEEDS AT THIS TIME.
[2016-12-08] MEDS ORDERED: MESALAMINE800 MG PO (09:41)
[2016-12-08] MEDS ORDERED: PREDNISONE10 MG PO (09:42)
[2016-12-08] MEDS ORDERED: MIRALAX17 GM PO (09:43)
[2016-12-08] MEDS ORDERED: PREPARATION H26 GM TOP (09:45)
[2016-12-08] MEDS ORDERED: BALNEOL CLEANSI89 ML TOP (09:46)
--- NOTE | 2016-12-08 11:06 | NUR ---
RECEIVED A CALL FROM PATIENTS DAUGHTER, WENDY CHRISTIANSON [phone]. SHE STATES HER DAD CALLED AND IS BEING DISCHARGED TODAY. SHE HAS MANY CONCERNS REGARDING HIS DISCHARGE. QUESTIONS REGARDING FINDINGS, MEDICATIONS, PLAN FOR WHATS NEXT. SHE STATES HER DAD WILL BE COMING TO [facility] WITH HER. DISCUSSED WITH HER THAT PHARMACY WILL GO OVER MEDS AND NURSING WILL GO OVER DISCHARGE WITH HER AND HER DAD BEFORE THEY LEAVE. ALSO OFFERED FOR DR IYER TO VISIT WITH HER WHEN SHE IS HERE. SHE STATES SHE WOULD LOVE TO TALK WITH HIM, SHE IS FRUSTRATED THAT THE SURGEON NEVER CALLED HER DURING THIS STAY. I OFFERED TO ASK HIM TO CALL HER TODAY AND ALSO SUGGESTED SHE GO TO HER DAD'S FOLLOW-UP APPOINTMENT WITH HIM. SHE STATES SHE WILL DO THAT. I DISCUSSED WITH HER THAT I HAD PLANNED A CARE CONFERENCE FOR TODAY OR TOMORROW BUT THAT HER DAD SPOKE WITH DR ROY'S ABOUT BEING DISCHARGED, SO WE CAN MEET WHEN SHE IS HERE FOR DISCHARGE. SHE IS IN AGREEMENT WITH THIS.
--- NOTE | 2016-12-08 12:29 | NUR ---
PHARMACIST ADVISED PT WAS IN PAIN. RN ASSESSED PT ON SOFA, PT SITTING ON SOFA C/O SEVERE PAIN. PT HAS PINCHED LOOK ON FACE, GRIMACING, AND SPEAKING 2-3 WORDS AT A TIME. PT STATED HE HAD DECREASED APPITITE, GAVE ENSURE SHAKE FOR LUNCH. HAS HAD SEVERAL LIQUID, BLOODY, BM THIS SHIFT. MD AWARE. PT STATES PAIN IS WORSE WITH COUGHING. ENCOURAGE PT TO SPLINT WHEN COUGHING. PRN PAIN MEDICATION GIVEN. ABD IS FIRM AND DISTENDED, TENDER TO PALP. BOWEL TONES HYPOACTIVE. TACHYPENIC.
--- NOTE | 2016-12-08 12:42 | NUR ---
TALKED TO DR ROY RE: CHANGE OF CONDITION. DR ROY ORDERED TO KEEP HIM, NO DISCHARGE. DR ROY HAS DISCUSSED OPTIONS WITH PT'S DAUGHTER. POSSIBLE TRANSFER TO [facility] OR [facility] TOMORROW. DAUGHTER, WENDY, NOTIFIED AND UPDATED. WENDY STATED SHE WILL COME BY TOMORROW AND CALL AGAIN TONIGHT TO CHECK IN ON PT.
--- NOTE | 2016-12-08 12:49 | NUR ---
DR IYER ADVISED OF CHANGE OF CONDITION AND NEW ORDERS FROM DR. ROY.
--- NOTE | 2016-12-08 13:10 | NUR ---
UPDATED BY CHARGE NURSE THAT PATIENT ISN'T FEELING WELL. THEY HAVE SPOKE TO DR IYER AND DR ROY. DISCHARGE HAS BEEN CANCELLED. THEY HAVE UPDATED PATIENTS FAMILY, DAUGHTER WENDY.
--- NOTE | 2016-12-08 13:42 | NUR ---
PT LYING IN BED WITH EYES CLOSED, MOANING AND WHIMPERING. RUBBING ABD. TACHYPENIC.
--- NOTE | 2016-12-08 14:27 | NUR ---
PT REPOSITIONED IN BED, JEANS REMOVED. PT RESTING COMFORTABLE POSSIBLE. PT MADE COMMENTS LIKE "I DON'T KNOW WHAT I DID TO GET THIS." AND "THIS PUT A GLITCH IN MY PLANS." PT TRYING TO REST, MOANING AND RUBBING HIS ABD IN HIS SLEEP. SCD IN PLACE.
--- NOTE | 2016-12-08 14:31 | NUR ---
CALLED AND SPOKE TO PATIENTS DAUGHTER, WENDY. SHE STATES THAT THE NURSE DID CALL HER AND UPDATE HER ON HER FATHER STAYING ANA. SHE ALSO STATED THAT DR ROY DID CALL HER AT HOME AND DISCUSSED HER FATHERS CONDITION. SHE IS FEELING "BETTER ABOUT IT" NOW. I SUGGESTED WE GO AHEAD WITH A CARE CONFERENCE TOMORROW WHEN SHE CAN BE AVAILABLE. SHE STATES SHE CAN BE HERE AT 5:15PM. WE DISCUSSED THAT DR ROY MAY LOOK AT TRANSFER TO [facility], AND IF THAT HAPPENS TOMORROW WE WILL CANCEL THE CONFERENCE. OFFERED TO MEET WITH HER TODAY, BUT SHE IS UNABLE TO COME TODAY DUE TO COMPANY AT HER HOME FOR THE HOLIDAY.
--- NOTE | 2016-12-08 16:01 | NUR ---
CONTACTED DR. ROY RE: CHANGE OF CONDITION. INCREASED LABORED BREATHING, O2 SATS ARE >92%, SHALLOW AND RAPID BREATHING. INCREASED ABD DISTENTION, PAIN. PAIN UNRELIEVED BY NORCO AND ULTRAM. URINE OUTPUT 100ML/4HR. ONE BM, JUNO BLOOD. DR. ROY WAS AT HIS OFFICE, HE WILL COME OVER TO THE HOSPITAL.
--- NOTE | 2016-12-08 17:28 | NUR ---
PT LEFT THE FLOOR FOR SURGERY WITH JG Novak RN AND RAFY Bryant CRNA. PT WILL RETURN TO THE UNIT POST-OP.
--- NOTE | 2016-12-08 18:10 | NUR ---
PT BECAME INCREASINGLY PAINFUL OVER THE SHIFT. CALLED AND ROUNDED. PT HAD 1 JUNO BLOOD BM THIS SHIFT. PT URINE OUTPUT DECREASED. FAMILY UPDATED. PT ORIGINALLY DISCHARGE PLAN FELL THROUGH. PT TAKEN TO SURGERY AT 1730 FOR COLONECTOMY WITH OSTOMY. PT WILL GO TO THE UNIT POST OP.
--- NOTE | 2016-12-08 19:48 | NUR ---
PT'S FAMILY IN WAITING ROOM. PT'S BELONGINGS BROUGHT TO RM 129. PT'S WALLET NOTED, GIVEN TO JIMY HIS DAUGHTER.
--- NOTE | 2016-12-08 20:59 | NUR ---
12/08/162058 Pamela Herr 2044 PATIENT ARRIVES TO PACU UNRESPONSIVE TO VERBAL OR TACTILE STIMULI, OCCASIONALLY MOANS. ORAL AIRWAY IN PLACE WITH MASK AT 10 LITERS. 2055 PATIENT HAS BEEN HYPOTENSIVE SINCE ARRIVAL TO PACU, RAFY ENTERPRISE MOBILITY ARCHITECT STILL AT BEDSIDE WITH PHENYLEPHERINE IVP GIVEN.
--- NOTE | 2016-12-08 23:40 | NUR ---
RECEIVED PT FROM PACU AT 2145. REPORT RECIEVED FROM KAYLIE PINA. PT WILL BREIFLY OPEN EYES TO LOUD STIM. EXTREMITIES ARE COOL. WHEN OXYMETER APPLIET TO L HAND READINGS WERE LOW 80'S ON RA AND 02 APPLIED WITHOUT ANY INC IN SAT, OXYMETER TO R HAND WHICH HAS BEEN IN WARM BLANKET SATS IMMEDIATLY TO 100%. 02 TO 4L OXYMASK. WARM BLANKETS APPLIED. AT 2250 DR CUELLO IN TO SEE PT. INFORMED OF LOW URINE OUTPUT. CVP UP. CVP 3-4. DR ROY CALLED 2320 INFORMED OF LOW URINE OUTPUT AND CVP. ORDER RECIEVED. BOLUS STARTED AT 2335.
--- NOTE | 2016-12-09 00:09 | NUR ---
STILL VERY SLEEPY. DID LIGHTLY SQUEEZE HAND ON REUQEST. EXTREMITIES ARE SL WARMER.
--- NOTE | 2016-12-09 01:04 | NUR ---
PT REPOSITIONED. PT DID TRY TO SPEAK BUT IS VERY SLEEPY AND WEAK. STATES IS HAVING A LITTLE PAIN THEN FELL BACK TO SLEEP.
--- NOTE | 2016-12-09 03:15 | NUR ---
PT CONT TO SLEEP. NO CHANGE. CONT TO MONITOR URINE OUTPUT.
--- NOTE | 2016-12-09 04:20 | NUR ---
A LITTLE MORE AWAKE, REQUESTED WATER, DID GIVE 1 SMALL ICE CHIP AND SWABBED MOUTH. REPOSITIONED, DU WELL. 0FF 02.
--- NOTE | 2016-12-09 06:11 | NUR ---
REPOSITIONED, GIVEN ICE CHIP. BACK TO SLEEP.
--- NOTE | 2016-12-09 06:55 | NUR ---
DR ROY IN TO SEE PT. PT IS MORE AWAKE, STATES IS SORE. GIVEN SMALL AMT WATER.
--- NOTE | 2016-12-09 07:20 | NUR ---
GIVEN 0.5MG DILAUDID IV FOR PAIN. REPORT TO DAY SHIFT.
--- NOTE | 2016-12-09 07:47 | NUR ---
BEDSIDE REPORT RECEIVED FROM YOVANI HAYES. PT RESTING IN BED AT THIS TIME. LANE DRAINING SMALL AMOUNTS OF CONCENTRATED URINE. HEART RATE INT HE 80-90s, SINUS, WITH PVCs AND PACs NOTED. LAST BP 120/49. SP02 IS 92% ON ROOM AIR. SCDs ON. PT RESTING WELL AT THIS TIME AFTER RECEIVING HIS FIRST DOSE OF PAIN MEDICATION SINCE HE RETURNED FROM SURGERY. CONTINUE TO MONITOR.
--- NOTE | 2016-12-09 09:25 | NUR ---
PATIENT RESTING AT THIS TIME. HEART RATE INTHE 80s, SINUS. PEEL OVEN TENDER FROM LAST NIGHT'S SURGERY CAME IN TO EVALUATE PATIENT AND SEE HIS PROGRESS. PT VERY TIRED AND WANTING TO SLEEP AND RELAX. PT ENCOURAGED TO USE INCENTIVE SPIROMETER AND ONLY ABLE TO USE IS TO 250 ML. PT STATES, "I'M GOING TO NEED ABOUT A DAY AND A HALF BEFORE I CAN DO ANYTHING LIKE THAT." PT EDUCATED ON THE IMPORTANCE OF EARLY MOBILIZATION AFTER SURGERY TO HELP PREVENT SOMETHING LIKE PNEUMONIA. PT CONTINUES TO STATE HE IS WORE OUT AFTER THE EVENTS OF YESTERDAY AND JUST NEEDS SOME TIME TO REST. CONTINUE TOMONITOR. PT BEING TURNED Q2 HRS WHILE HE IS TOLERANT OF AND HELPS MOVE IN BED WELL.
--- NOTE | 2016-12-09 10:14 | NUR ---
PATIENT HELPED TO REPOSITION TO HIS BACK. PT'S WINDOW OPENED UP FOR HIM TO HAVE SOME NATURAL LIGHT IN ROOM. PT AND THIS RN MAKE A GOAL FOR PATIENT TO ATTEMPT TO GET UP TO BEDSIDE AND AT LEAST DANGLE TODAY, IF NOT STAND AND MAYBE GET TO CHAIR. PT AGREEABLE. PT RESTING WELL. CONTINUE TO MONITOR.
--- NOTE | 2016-12-09 11:12 | NUR ---
PHYSICAL THERAPY HERE TO WORK WITH PATIENT AND PATIENT ABLE TO GET UP OUT OF BED WITH 2 PERSON MINIMAL ASSIST, PT ABLE TO WALK ABOUT TEN STEPS IN ROOM, AND PT ABLE TO NOW SIT IN CHAIR TO REST. PT AGREEABLE TO SIT IN CHAIR FOR A WHILE AND REST. URINE OUTPUT HAS BEEN ADEQUATE. CONTINUE TO MONITOR.
--- NOTE | 2016-12-09 13:08 | NUR ---
SPOKE WITH PATIENTS DAUGHTERWENDY REGARDING SCHEDULED CARE CONFERENCE TODAY AT 5:15PM. SHE STATES SHE IS STILL PLANNING ON ATTENDING. CALLED AND SPOKE WITH DR ROY, TO LET HIM KNOW OF PLANNED CARE CONFERENCE. HE STATES HE HAS SPOKEN TO DAUGHTER AND MIGHT NOT ATTEND.
--- NOTE | 2016-12-09 13:09 | NUR ---
PATIENT BACK TO BED AT THIS TIME AND ENCOURAGED TO REST. PT TOLERATED SITTING UP IN CHAIR VERY WELL FOR A FEW HOURS. LANE CATHETER CARE COMPLETE. PT USES IS WITH RT IN ROOM X10 AND DOES FAIRLY WELL. SCDs ON. CONTINUE TO MONITOR URINE OUTPUT. PLACED PT BACK ON 02 AT 2 L AT THIS TIME WELL FOR SP02 DOWN TO 86-87% WHILE LYING IN BED. PT ENCOAURGED TO CONTINUE TAKING DEEP BREATHS. CALL LIGHT WITHIN REACH.
--- NOTE | 2016-12-09 14:46 | NUR ---
EVELIA 11/30/16 5930 WHILE DOING THE PT INITIAL CASE MANAGEMENT ASSESSMENT, THE PT DID INFORM ME THAT HE DID NOT WANT ANYONE INCLUDING HIS FRIEND AND HIS DAUGHTER CONTACTED WHEN I SPOKE WITH HIM. HE STATED HE WOULD CONTACT THEM IF HE FELT THEY NEEDED TO BE CONTACTED. I AGAIN STATED I WOULD BE HAPPY TO CALL SOMEONE IF HE WANTED SOMEONE CALLED AND HE AGAIN STATED NO.
--- NOTE | 2016-12-09 15:29 | NUR ---
PATIENT NOTED TO HAVE INCREASED ECTOPY AT TIMES ON HEART MONITOR. DR. CUELLO CALLED AND UPDATED ON PATIENT'S HEART RHYTHM. ORDER REC'D TO GO AHEAD AND GIVE A DOSE OF PO METOPROLOL NOW, 12.5 MG. PT ABLE TO TAKE PILL WITHOUT DIFFICULTY WITH A SIP OF WATER. PT HAS TOLERATED SIPS OF WATER TODAY WELL. CARE CONFERENCE PLANNED FOR 1715 THIS EVENING. CONTINUE TO MONITOR. TPN TO BE STARTED WITH LIPIDS AT 1600.
--- NOTE | 2016-12-09 16:45 | NUR ---
AT 1530, PATIENT AWAKE AND RESTING IN BED. DISCUSSED WITH PATIENT THE PLAN TO HAVE A CARE CONFERENCE AT 1715. PT AGREEABLE TO GET UP TO CHAIR AT 1645 AND BE READY FOR THE MEETING. AT 1540, PATIENT NOTED TO HAVE PULLED TELE LEADS OFF. PATIENT FOUND IN BED, WITH ILIOSTOMY APPLICATOR REMOVED, TELE LEADS OFF, AND GOWN OFF. PATIENT WAS ASKING "TO GET OUT OF BED TO PEE." PT REMINDED OF HIS LANE CATHETER THAT WAS DRAINING HIS URINE. PT WAS RE-ORIENTED TO HOSPITAL ROOM AND THE NEED TO KEEP HIS TELE LEADS ON. PT STARTED TO ACT LIKE HE HAD REALIZED THAT HE SHOULDN'T HAVE BEEN PULLING THINGS OFF AND STARTED TO APOLOGIZE. PT STATED, "I SHOULD HAVE ASKED FOR HELP INSTEAD OF BEING INDEPENDENT, I JUST THOUGHT I COULD DO IT ON MY OWN." NEW APPLICATOR APPLIED TO ILIOSTOMY AND NEW GOWN APPLIED. BED LINEN CHANGED. CONTINUE TO [facility] CLOSELY. PT NOW SITTING IN CHAIR AND HIS FRIEND JIMY HAS RETURNED TO ROOM.
--- NOTE | 2016-12-09 17:48 | NUR ---
CARE CONFERENCE ATTENDANCE: PATIENT, DAUGHTER WENDY, FRIEND JIMY STAFF: IBIS LEAVITT PHARMACIST, JANICE PHYSICAL THERAPIST, TATE OFFICE SUPPORT ASSISTANT, MYSELF CASE MANAGMENT DR CUELLO DISCUSSED COURSE OF STAY, SURGICAL PROCEDURE, PRESENT ORDERS, LABS, AND POST OP EXPECTATIONS. PHARMACIST DISCUSSED MEDICATIONS ORDERED AND HOME MEDICATIONS. PHYSICAL THERAPIST WENT OVER THERAPY EXPECTATIONS AND HOW HE DID TODAY. SHE ALSO DISCUSSED THAT PATIENT WILL NEED PROBABLE SNF REHAB TO GO HOME ALONE SAFELY. TATE DISCUSSED TODAY'S EVENTS AND HOW HE IS DOING. I DISCUSSED POSSIBLE NEEDS FOR DISCHARGE INCLUDING REHAB. FAMILY AND PATIENT ASKED QUESTIONS AND FELT THEY KNOW HOW THINGS ARE GOING TO THIS POINT. ENCOURAGED THEM TO CONTINUE TO ASK QUESTIONS THEY ARISE.
--- NOTE | 2016-12-09 18:05 | NUR ---
CARE CONFERENCE HELD WITH DR. CUELLO, PT, PHARMACY, CASE MANAGMENT, AND PT'S FAMILY. DISCUSSION WENT WELL WITH FORWARD PROGRESS. CONTINUE TO MONITOR.
--- NOTE | 2016-12-09 20:00 | NUR ---
PATIENT SITTING UP IN CHAIR; DENIES COMPLAINTS AT THIS TIME. STATES PAIN IS 'ABOUT A 4 OR 5'; DENIES NAUSEA OR PROBLEMS BREATHING. PATIENT IS REQUESTING TO GET BACK INTO BED AT THIS TIME. PATIENT RETURNED TO BED WITH STAND-BY ASSISTANCE (TO WATCH TUBES AND MONITOR LINES); PATIENT TOLERATED WELL AND APPEARED TO BE STEADY ON FEET. TPN INFUSING ORDERED.
--- NOTE | 2016-12-09 21:00 | NUR ---
PATIENT STATES ABDOMEN AND BACK ARE A 'LITTLE MORE ACHY' AND REQUESTED SOMETHING FOR THE PAIN. STOMA IS PINK AND WARM; SMALL AMOUNT SERO-SANG DRAINAGE NOTED FROM STOMA; BAG INTACT AT THIS TIME. R ARM APPEARS TO HAVE 2 SMALL PUNCTURE SITES (EARLIER IV/PICC ATTEMPT?) THAT WERE LEAKING SANGUINOUS FLUID; GAUZE DRESSING APPLIED FOR ABSORBANCY.
--- NOTE | 2016-12-10 00:05 | NUR ---
patient appears to be sleeping without problems; awakened easily to voice. patient denies complaints at this time. no changes in assessment.
--- NOTE | 2016-12-10 02:00 | NUR ---
patient gown and linen changed; urine appears to leak some around pacheco catheter; 7 mL additional sterile saline added to balloon to see if leaking can be made to stop. patient turned to L side. no changes in assessment at this time.
--- NOTE | 2016-12-10 06:00 | NUR ---
patient c/o abdominal pain; '. urine pink tinged again, with sediment noted. urine has leaked some around pacheco catheter this shift; patient changed and kept as dry as possible t/o shift. blood drawn through central line for labs, and flushed well with 20 mL of NS after blood draw. bowel tones remain hypoactive at this time.
--- NOTE | 2016-12-10 08:23 | NUR ---
DR. ROY IN TO ASSESS PT AND ABD WILTON DC'D, ADDY IN TACK, NO DRAINAGE NOTED. PT AWAKENS TO VOICE AND STATES PAIN "3/10". ASSESSMENT COMPLETED, ACTIVE BOWEL SOUNDS NOTED. ILEOSTOMY BAG WITH SCANT AMT OF S/S DRAINAGE. 02 ON @ 2L PER NC WITH SATS 96%. VS WN. LANE DRAINING RAFY/PINK URINE. LUNG CLEAR BUT DIM IN BASES. SCD'D ON BILAT.
--- NOTE | 2016-12-10 09:19 | NUR ---
BED BATH GIVEN AND PT UP TO MARY BETH CHAIR WITH ONE PERSON ASSIST. ORAL CARE COMPLETED. LANE CATH DRAINING YELLOW URINE.
--- NOTE | 2016-12-10 11:04 | NUR ---
PT RESTING IN MARY BETH CHAIR IN RECLINED POSITION WITH FEET ELEVATED, PILLOW UNDER LOWER EXTREMITIES TO HELP ELEVATE. PASTOR RHODES IN TO VISIT WITH PT.
--- NOTE | 2016-12-10 12:09 | NUR ---
DILAUDID SALES CONSULTING DIRECTOR STARTED, PT TRANSFERRED TO BED WITH ONE PERSON ASSIST. RESTING WITH HOB ELEVATED. ASSESSMENT COMPLETED, PT ENCOURAGED TO COUGH AND DEEP BREATHE. IN ROOM AT THIS TIME. PT WILL RETURN AT APPROX 1300 TO WORK WITH PT.
--- NOTE | 2016-12-10 12:55 | NUR ---
PT WAS SITTING UP IN CHAIR, RATHER QUIET. HE DID CONFESS THAT HE IS STILL HAVING A HARD TIME GRASPING ALL THAT HAS TAKEN PLACE TO HIM SINCE HIS ADMISSION. HARD TO GET PT TO RESPOND, BUT SEEMED TO APPRECIATE MY PRESENCE. WILL CNTINUE TO FOLLOW
--- NOTE | 2016-12-10 14:37 | NUR ---
I/O'S COMPLETED, P.T. HERE AND AMBULATED PT IN HALLWAY AND BACK TO ROOM. PT RESTING IN MARY BETH CHAIR WITH LEGS ELEVATED ON PILLOW. WARM BLANKET GIVEN.
--- NOTE | 2016-12-10 15:28 | NUR ---
PT RETURNED TO BED, RESTING WITH HOB ELEVATED, SCD'S ON BILAT. SATS 87% ON RA, 02 ON AT 2L PER NC.
--- NOTE | 2016-12-10 16:17 | NUR ---
ASSESSMENT COMPLETED. STATES PAIN "10". PT ENCOURAGED TO USE DILAUDID EMBOSSER APPRENTICE. RESTING WITH HOB ELEVATED. LANE DRAINING DARK YELLOW URINE. PT PULLS ON LANE CATH AT TIMES.
--- NOTE | 2016-12-10 18:23 | NUR ---
LANE LEAKING AND NO URINE OUTPUT IN LANE BAG THIS LAST HOUR. DR. ROY NOTIFIED AND ORDERS RECEIVED TO START LR TO RUN AT 15 MLS/HR. THIS TOTAL WITH TPN WILL BE 100 ML/HRL.
--- NOTE | 2016-12-10 19:22 | NUR ---
LANE DC'D D/T LEAKING, BLOOD CLOT NOTED ON END OF CATH TIP. NEW LANE CATH INSERTED WITHOUT PROBLEMS.
--- NOTE | 2016-12-10 19:30 | NUR ---
PT SHIFT REPORT GIVEN FROM DAY SHIFT RN'S. PT HAD A GOOD DAY. PER NURSES HAD TO REPLACE LANE CATHETER D/T BLOOD CLOT BLOCKING LANE. PT HAS TUGGED ON LANE MULTIPLE TIMES THROUGHOUT THE DAY. PT IS ON AND OFF OXYGEN NEEDED. CURRENTLY PT OFF O2 AT THIS ITME. PT ABD WOUND OPEN TO AIR. ADDY INTACT. HYPOACTIVE BOWELTONES. SOME STOOL NOTED IN ILIOSTOMY. WILL CONTINUE TO MONITOR.
--- NOTE | 2016-12-10 20:38 | NUR ---
PT LANE DRAINING WELL SINCE BEING REPLACED. URINE IS PINK TINGED AND CONCENTRATED. NO DRAINANGE AROUND LANE AT THIS TIME. SCROTOM ELEVATED TO HELP IMPROVE SWELLING. PT IS EDEMOTOUS THROUGHTOUT BODY. BOWEL TONES HYPOACTIVE. PT IS COUGHING UP SECRETIONS. RT IN TO WORK WITH PT AND ENCOURAGE DEEP BREATHING AND COUGH. PT EDUCATED REGUARDING PAIN PUMP. PT EDUCATED THE IMPORTANCE OF COVERING PAIN. PT COMPLAINS OF MOST PAIN WITH COUGHING. WILL CONTINUE TO MONITOR.
--- NOTE | 2016-12-10 22:30 | NUR ---
PT ASSISSTED UP TO CAMMODE. P JUST FELT LIKE HE NEEDED TO PEE. EXPLAINED LANE IS IN PLACE. PT TOLERATED WELL AND ASSISTED BACK TO BED. WILL CONTINUE TO MONITOR.
--- NOTE | 2016-12-10 23:00 | NUR ---
PT RESTING IN BED AT THIS TIME. WILL CONTINUE TO MONITOR. BED ALARM IN PLACE.
--- NOTE | 2016-12-11 01:00 | NUR ---
PT RESTING IN BED AT THIS TIME. NO OTHER ISSUES. WILL CONTINUE TO MONITOR.
--- NOTE | 2016-12-11 01:30 | NUR ---
REPOSITIONED PT IN BED WITH PILLOW SUPPORT PER PT REQUEST. WILL CONTINUE TO MONITOR.
--- NOTE | 2016-12-11 02:00 | NUR ---
PT FELT LIKE HE NEEDED TO STRETCH. METER READING CLERK ASSSITED PT UP AND WALKED AROUND ROOM WITH WALKER. PT TOLERATED WELL AND ASSISTED TO CHAIR. CHAIR ALARM IN PLACE. REMINDED PT TO CALL FOR ASSISTANCE. WILL CONTINUE TO MONITOR.
--- NOTE | 2016-12-11 04:00 | NUR ---
pt calling out for assistance. pt ready to go back to bed. assisted pt up and back to bed with no issues. pt pacheco leaking a little from penis. flushed pacheco to make sure there are no clots blocking. pacheco continues to drain pink/ red tinged urine with occasional small clots present. pt resting in bed at this time. elevated arms on pillows to help with edema. elevated legs to help with edema. call light in reach. bed alarm on. pt is forgetful at times.
--- NOTE | 2016-12-11 06:19 | NUR ---
PT RESTING OFF AND ON SINCE HE IS BACK IN BED. PT URINE IS CLEARING UP THIS AM AND NOT PINK/RED. WILL CONTINUE TO REMIND PT THAT HE HAS A LANE IN PLACE. SCROTOM REMAIN SWOLLEN AND ELEVATED WITH PILLOW CASE. PT ASKED THIS TIME WHEN HE WILL GET OUT OF HERE. WHEN ASKED WHAT HE IS REFFERING TO, PT STATED "WHEN DO I GET TO GO BACK TO THE OTHER ROOM I WAS IN PREVIOUSLY". UPDATED PT ON CURRENT PLAN OF CARE AND THAT WE WILL TALK WITH THE MD THIS AM REGUARDING STATUS. PT IS AWAKE AND ALERT THIS AM WITH OCCASIONAL FORGETFULNESS. WILL CONTINUE TO REORIENT NEEDED.
--- NOTE | 2016-12-11 08:43 | NUR ---
PT AWAKE AND ALERT THIS AM, DR. CUELLO IN TO ASSESS PT, PT UP TO MARY BETH CHAIR WITH MINIMAL ASSIST. ASSESSMENT COMPLETED, PT RATES SURGICAL DISCOMFORT "2/10". MINIMAL USE OF DILAUDID MANAGER STORAGE. DR. ROY IN TO ASSESS PT. WILL TRANSFER PT TO MED/SURG FLOOR. ABD ADDY IN TACT, SLIGHT REDNESS ON LOWER ABD. LANE DRAINING CLEAR YELLOW URINE.
--- NOTE | 2016-12-11 11:57 | NUR ---
PT MEDICATED WITH NORCO 2 PO, P.T. HERE AND PT TRANSFERRED AMBULATORY TO ROOM 121 ON MED/SURG. PT DU WELL. REPORT GIVEN TO EMMY Goel
--- NOTE | 2016-12-11 12:25 | NUR ---
REPORT RECEIVED FROM CCU NURSE SUSAN. PATIENT WALKED FROM CCU TO MED-SURG FLOOR WITH PHYSICAL THERAPIST. RESTING IN BED AT THIS TIME. ASSESSMENT DONE. LUNGS CLEAR AND DIM IN THE BASES. ILEOSTOMY IN PLACE WNL. LANE IN PLACE DRAINING WELL. IJ IN PLACE, DRESSING INTACT AND TPN INFUSING. GENERALIZED EDEMA NOTED, SOME BRUISES ON UPPER ARMS AND LEGS. BOWEL TONES HYPOACTIVE. PATIENT DENIED PAIN AT THIS TIME. NO OTHER COMPLAINTS.
--- NOTE | 2016-12-11 15:00 | NUR ---
ATTEMPTED X2 TO SEE IF PATIENT'S WAS HERE SO I COULD TALK TO HER ABOUT NUTRITION FOR ILEOSTOMY, BUT SHE HASN'T BEEN HERE YET TODAY. I WILL BE AVAILABLE ON WEDNESDAY TO REVIEW NUTRITION FOR ILEOSTOMY.
--- NOTE | 2016-12-11 15:39 | NUR ---
PATIENT RESTING BED, DENIES PAIN. AFTERNOON MED GIVEN. NO APPARENT DISTRESS. FAMILY IN ROOM VISITING.
--- NOTE | 2016-12-11 18:06 | NUR ---
PATIENT TRANSFER FROM CCU THIS AM. DENIES PAIN. BOWEL TONES HYPOACTIVE. MIDLINE INCISION OPEN TO AIR AND ALL ADDY IN PLACE. ILEOSTOMY IN PLACE AND FUNCTION WELL. LANE IN PLACE AND DRAINING WELL. CENTRAL LINE (IJ) IN PLACE DRESSING INTACT AND TPN, LIPIDS AND ABX INFUSING. PATIENT A&O. LUNGS CLEAR BUT DIM IN THE BASES. LOOSE PRODUCTIVE COUGH. TOLERATED FULL LIQUID DIET WELL. GENERALIZED EDEMA. FRAGILE SKIN AND BRUISE EASILY.
--- NOTE | 2016-12-11 23:34 | NUR ---
WHEN BEING MEDICATED FOR PAIN PATIENT NOTED TO BE EXTREMELY ANXIOUS AND AGITATED. "I JUST CAN'T TAKE IT MISTER, I'M LIZ AROUND HERE." DR CUELLO CALLED AND NOTIFIED WITH NEW ORDER RECEIVED FOR ATIVAN 1MG IVP X 1.
--- NOTE | 2016-12-11 23:34 | NUR ---
PATIENT MEDICATED WITH NORCO FOR ABDOMINAL PAIN.
--- NOTE | 2016-12-12 02:05 | NUR ---
PATIENT HAS BEEN CALMLY SLEEPING IN BED SINCE MEDICATED FOR EPISODE OF SEVER ANXIOUSNESS/AGITATION.
--- NOTE | 2016-12-12 05:37 | NUR ---
PATIENT RESTED WELL DURING THE NIGHT AFTER MEDICATION FOR ANXIETY/AGITATION. CONTINUES INFUSING TPN AND RECIEVING ABX THERAPY. CENTRAL LINE TO RJ. LANE DRAINING CONCETRATED YELLOW URINE QS. RATES PAIN 4/10 AT THIS TIME AND DOES NOT WANT ANYTHING FOR PAIN AT THIS TIME. DENIES ANY WANTS OR NEEDS CURRENTLY. BLACK LIQUID SOFT STOOL FROM ILEOSTOMY.
--- NOTE | 2016-12-12 08:30 | NUR ---
PT RESTING IN BED ON LEFT SIDE, EYES CLOSED, RESP 22-24, SLIGHTLY LABORED. PT AWOKE EASILY TO VOICE, REPORTS SOME PAIN AND STATES HIS BREATHING "IS NOT EASY USUAL." NOTIFIED DR. ROY. PT MEDICATED WITH PRN PAIN MEDS. MIDLINE INSICION OPEN TO AIR, ADDY INTACT, EDGES WELL APPROXIMATED, SCANT AMOUNT OF SEROSANGUINOUS DRAINAGE. ILEOSTOMY SITE CDI, PUTTING OUT SMALL AMOUNT OF DARK BROWN, LIQUID STOOL. LANE PATENT, PUTTING OUT QUANTITY SUFFICIENT RAFY URINE. RIGHT IJ DRESSING CDI, ALL PORTS PATENT AND FLUSHING WELL EXCPET WHITE PORT UNABLE TO FLUSH. PT SLOW TO RESPOND, NOT ORIENTED TO DATE OR SITUATION.
--- NOTE | 2016-12-12 08:41 | NUR ---
THIS PATIENT WAS GIVEN A BEDBATH AND REPOSITIONED IN BED BY THIS MEDICAL SURGICAL TECH. NO OTHER REQUESTS OR COMPLAINTS AT THIS TIME.
--- NOTE | 2016-12-12 10:07 | NUR ---
PATIENT IS RESTING IN BED WITH HIS EYES CLOSED. PATIENT IS ALSO ON CPAP AT THIS TIME WITH AN FIO2 OF 30%. VITALS WERE TAKEN.
--- NOTE | 2016-12-12 10:15 | NUR ---
PT PLACED ON BIPAP PER NEW ORDERS, DU WELL. IN BED SLEEPING SOUNDLY.
--- NOTE | 2016-12-12 13:15 | NUR ---
PT REQUESTED TO AMBULATED. NOTIFIED KATELYN Lomeli P.T. WORKED WITH PT, DID EXERCISES AND AMB IN HALLWAY WITH WALKER. AMB BACK TO ROOM AND IS SITTING UP IN RECLINER. PT DENIES NEEDS OR CONCERNS AT THIST TIME. DAUGHTER AT BEDSIDE. CALL LIGHT WITHIN REACH.
--- NOTE | 2016-12-12 14:10 | NUR ---
PT RESTING IN BED, APPEARS MORE LETHARGIC THAN PREVIOUSLY. PT HAD INCREASED DIFFICULTY ANSWERING ORIENTATION QUESTIONS, VERY SLOW TO RESPOND. ORIENTED TO SELF, "HOSPITAL", AND FAMILY. DENIES PAIN OR OTHER CONCERNS. WILL CONTINUE TO MONITOR CLOSELY. PT DU BIPAP WELL WHILE ASLEEP.
--- NOTE | 2016-12-12 14:20 | NUR ---
Patient is resting in bed at this time. Vitals taken.
--- NOTE | 2016-12-12 15:30 | NUR ---
PT HAS BECOME PROGRESSIVLEY LETHARGIC AND IS CURRENTLY OBTUNDED. NOT RESPONSIVE TO VERBAL OR PAINFUL STIMULI. VS STABLE BP 138/47, TEMP 97.8, PULSE 84 WITH IRREGULAR RATE, RR [address] ROY, INFORMED ME TO NOTIFY HOSPITALIST. DR. IYER CONTACTED, TELEPHONE ORDER TO OBTAIN ABG AND STATED HE WOULD BE TO THE FLOOR SOON TO ASSESS THE PT. LANE CONT TO PUT OUT QUANITY SUFFICENT URINE. LUNGS CLEAR, DIMINISHED IN BASES. ABD REMAINS SLIGHTLY FIRM WITH HYPOACTIVE. MIDLINE INCISION UNCHANGED, ILEOSTOMY UNCHANGED.
--- NOTE | 2016-12-12 17:00 | NUR ---
PT TRANSFERRE TO CCU. PERSONAL ITEMS AND MEDS SENT WITH PT. BEDSIDE REPORT GIVEN TO JHON PINA. DR. IYER NOTIFIED FAMILY.
--- NOTE | 2016-12-12 17:10 | NUR ---
pt transfered from the m/s unit at this time to ccu due to change in mental status.Sternal rub no response from pt. Received report from Rachelle PINA, pt had been given ativan 1 mg around 23:00 on 12/11/16 and one norco at 09:00 this am. Pt had been awake talking with staff working with PT. At or about 13:00 today pt became obtainded and has not responed to any stimulis from staff or family. Austin draining benja in color urine, pt placed on monitor in SR with PVC & PAC's. Pt assessment unchange except now he is unresponsive.
--- NOTE | 2016-12-12 18:36 | NUR ---
PT AWAKE AND ABLE TO TALK WITH STAFF AND FAMILY PT STATES "MY GUTS ARE ON FIRE" CALL DR IYER AND NO NEW ORDERS AT THIS TIME.
--- NOTE | 2016-12-12 18:38 | NUR ---
PT REPOSITIONED TO HIS LAFT SIDE WITH PILLOW AT HIS BACK, BETWEEN HIS KNEES AND HIS RIGHT ARM ELEVATED ON A PILLOW AT THIS TIME.
--- NOTE | 2016-12-12 19:39 | NUR ---
SITTING UP IN CHAIR. STATES NEEDS TO GO TO BR. STOOD WITH MINIMAL ASSIST, STATES DOES HAVE "VERTIGO". USED WALKER TO AMB TO BR WITHOUT PROBLEMT.
--- NOTE | 2016-12-12 19:40 | NUR ---
IS AWAKE, STATES GENERALLY DOES NOT FEEL WELL, WHEN ASKED IF NAUSEATED STATED HE "COULD BE". C/O ABD PAIN. WHEN TALKING TO PT RESP RATE DID INC TO MID TO UPPER 20'S. DR IYER INFORMED OF PT INCREASED ALERTNESS AND OF HIS NOT FEELING WELL.
--- NOTE | 2016-12-12 20:10 | NUR ---
PT WAS GIVEN ZOFRAN PRIOR TO GIVEN 1 NORCO PO. PT ASKING ABOUT WHAT IS WRONG WITH HIM. EXPLAINED WHAT HAPPENED THIS AFTERNOON AND THAT WE ARE MONITORING HIM. DID TELL PT THAT WE ARE UNSURE TO WHY HE BECAME NONRESPONSIVE.
--- NOTE | 2016-12-12 21:02 | NUR ---
REPOSITIONED. ALEX CARE DONE, HAD SMALL AMT BLOODY DRAINAGED FROM RECTUM. WILL DEST BREIFLY THEN BACK UP. DOES HAVE MOIST PRODUCTIVE COUGH, SPUTUM IS YELLOW. PT STATES HE IS CONFUSED. ATTEMPTED TO REORIENT AND TELL HIM AGAIN WHAT HAPPENED. STATES ABD IS NOT ON FIRE EARLIER.
--- NOTE | 2016-12-12 22:15 | NUR ---
PT SATS DEC TO 84, SLOWLY INC TO 88. PLACED ON 2 LNC AND SATS INC TO 97%.
--- NOTE | 2016-12-13 00:11 | NUR ---
SLEEPING WELL WITH CPAP IN PLACE. AWAKENED TO REPEATED VOICE. ONLY NODDED TO QUESTIONS. WAS ABLE TO TAKE SIP WATER. CPAP REPLACED AND PT BACK TO SLEEP. BREATH TONES IMPROVED SINCE COUGHING AND WEARING CPAP.
--- NOTE | 2016-12-13 01:14 | NUR ---
PT TOOK CPAP OFF. IS MORE ALERT. COUGHING. INC ABD PAIN WITH COUGH. GIVEN 1 NORCO PO. WANTS TO WAIT UNTIL NORCO TAKES EFFECT BEFORE REPOSITIONING.
--- NOTE | 2016-12-13 01:46 | NUR ---
REPOSITIONED. BS DONE. HAS STONG COUGH DESPITE DISCOMFORT.
--- NOTE | 2016-12-13 03:55 | NUR ---
AWAKE. PT IS TILL TRYING TO FIGURE THINGS OUT. WHEN TALKING WITH PT HE WOULD DRIFT TO SLEEP THEN OPEN EYES AND TALK MORE. REPOSITIONED. STATES ABD MOSTLY HURTS WHEN HE COUGHS. HAD PT USE IS.
--- NOTE | 2016-12-13 06:02 | NUR ---
SLEEPS OFF AND ON. STILL HAVING DIFFICULTY WITH MEMORY. GIVEN 1 NORCO PO FOR ABD PAIN CONTROL. LABS DRAWN PER CENTRAL LINE.
--- NOTE | 2016-12-13 07:45 | NUR ---
PT AWAKE TALKING WITH DATA GOVERNANCE CONSULTANT, DOES NOT REMENBER YESTERDAY AFTERNOON. BUT THIS MORNING HE IS ALERT, AWAKE AND TALKING. AFTER AM CARE WAS COMPLETED HE WAS ASSISTED UP TO THE CHAIR SHAVED. CALL LIGHT INPLACE, PT ROOM IS ACROSS FROM NURSES STATION. CURRENTLY DRINKING A CUP OF COFFEE.
--- NOTE | 2016-12-13 09:47 | NUR ---
PT REMAINS UP IN THE CHAIR APPEARS TO BE SLEEPING
--- NOTE | 2016-12-13 11:29 | NUR ---
PT REMAINS UP IN THE CHAIR, HE HAS HAD GOOD RESPONSE TO THE LAXIS THAT WAS GIVEN IVP. LUNCH ORDERED.
--- NOTE | 2016-12-13 12:47 | NUR ---
PT REMAINS UP IN THE CHAIR, FAMILY AND FREINDS INTO VISIT AT THIS TIME.
--- NOTE | 2016-12-13 13:40 | NUR ---
PT BACK TO BED AT THIS TIME, I & O'S COMPLETED AND THEN PT CAME INTO WORK WITH PT ALSO AT THIS TIME. PT DENIES PAIN WITH ACTIVITY AT THIS TIME.
--- NOTE | 2016-12-13 14:18 | NUR ---
PHONE CALL TO DR ROY REGARDING INCREASED CBG R/T EATING ADA DIET AND RECEIVEING TPN. NEW ORDER TO DECREASE RATE OF TPN AND NO LIPIDS TODAY. PHARMACY CALLED. DR IYER IN UNIT AND IS ARRARE OF CBG AND INSTRUCTED TO FOLLOW CURRENT SLIDING INSULIN SCALE. PT REMAINS IN BED DENIES PAIN, SIDE RAILS UP AND CALL LIGHT WITHIN REACH.
--- NOTE | 2016-12-13 15:13 | NUR ---
PT FAMILY LEFT FOR THE DAY. PT CONTIOUES TO NOT TALK MUCH EVEN WITH FAMILY.
--- NOTE | 2016-12-13 16:18 | NUR ---
TPN rate decreased to 45ml/hr and lipids discontinued per Dr Prajapati verbal order
--- NOTE | 2016-12-13 16:58 | NUR ---
PT UP TO THE CHAIR AT THIS TIME FOR MEALS. FAMILY INTO VISIT AT THIS TIME.
--- NOTE | 2016-12-13 18:22 | NUR ---
PT BACK TO BED AT THIS TIME, PT DID MOST OF THE WORK OF GETTING UP AND OUT OF THE CHAIR, AMBULATED A FEW STEPS TO BAD AND WAS ABLE TO LIFT FEET AND LEGS INTO THE BED ON HIS OWN. SIDE RAILS,X 3, CALL LIGHT WITH IN REACH, WARM BLANKET GIVEN
--- NOTE | 2016-12-13 19:55 | NUR ---
REPORT RECIEVED FROM DAY SHIFT. PT IS AWAKE BUT RESTFUL. IN BETTER SPIRITS TONIGHT.
--- NOTE | 2016-12-13 21:26 | NUR ---
HS CARE DONE. GIVEN 1 NORCO PO FOR PAIN CONTROL AND REST.
--- NOTE | 2016-12-13 23:14 | NUR ---
PT HAS TURNED SELF TO SIDE AND IS SLEEPING.
--- NOTE | 2016-12-14 00:54 | NUR ---
PT IS AWAKE BUT IS RESTFUL. STATES HE "MUST HAVE" SLEPT. NO C/O. WATER AT BEDSIDE PT DECLINES OFFER OF ANYTHING ELSE TO DRINK.
--- NOTE | 2016-12-14 03:01 | NUR ---
PT SLEEPING OFF AND ON. NO CHANGE.
--- NOTE | 2016-12-14 03:39 | NUR ---
PT AWAKE, HAD COUGHED UP LARGE AMT PHLEGM AND NEEDED TO SPIT IT OUT. ASSISTED TO REPOSITION UP IN BED. GIVEN 1 NORCO PO FOR PAIN CONTROL.
--- NOTE | 2016-12-14 06:14 | NUR ---
PT SLEEPING, AWAKE VERY BRIEFLY FOR LAB DRAW. HAS BEEN SLEEPING SOUNDLY SINCE ABOUT 0500.
--- NOTE | 2016-12-14 07:40 | NUR ---
BEDSIDE REPORT RECEIVED FROM YOVANI HAYES. PT RESTING IN BED UPON INITIAL ASSESSMENT. PT IS SLOW TO RESPOND TO QUESTIONS BUT IS ALERT, ORIENTED, AND ANSWERING QUESTIONS APPROPRIATELY. PT'S HEART RATE IS IN THE 90-110s, WITH PVCs. PT HAS YELLOW STAINING ON ABDOMEN AREA. SOAP/WATER AND WASH CLOTH APPLIED TO SKIN TO TRY AND CLEAN AREA. DR. ROY IN TO SEE PATIENT. PT TO TRANSFER TO FLOOR TODAY. BREAKFAST ORDERED. ASSESSMENT COMPLETE. TPN INFUSING AT 45 ML/HR, CEFEPIME AT 30 ML/HR. ILIOSTOMY EMPTIED FOR 150 ML LIQUID BROWN STOOL WITH EVIDENCE OF SOME POTASSIUM PILLS THAT DID NOT FULLY DISSOLVE. PT GIVEN MORNING MEDS WITHOUT DIFFICULTY. CONTINUE TO MONITOR.
--- NOTE | 2016-12-14 08:11 | NUR ---
PT PUT ON 2 L NC OF OXYGEN DUE TO SP02 BEING DOWN TO 88-89%. PT ASKED TO TAKE DEEP BREATHS.
--- NOTE | 2016-12-14 09:27 | NUR ---
PATIENT REMAINS IN CHAIR AT THIS TIME. PT ATE APPROX 40% OF HIS BREAKFAST. PT DENIES FURTHER NEEDS. CONTINUE TO MONITOR.
--- NOTE | 2016-12-14 10:49 | NUR ---
DR. IYER IN TO SEE PATIENT. NO FURTHER ORDERS REC'D AT THIS TIME. PT TO TRANSFER TO MEDICAL FLOOR TODAY.
--- NOTE | 2016-12-14 11:15 | NUR ---
PATIENT SLEEPING AT THIS TIME. PT WORKED WITH PHYSICAL THERAPY EARLIER THIS AM, AND TOLERATED AMBULATING IN [place], DOWN TO END OF CCU AND BACK INTO HIS ROOM. HEART RATE CURRENTLY IN THE 60-70s, WITH PVCs NOTED. SP02 IS NOW 90% ON ROOM AIR.
--- NOTE | 2016-12-14 11:56 | NUR ---
REPORT GIVEN TO YOVANI SANTOYO. PATIENT TO BE TRANSFERRED TO ROOM 111 IN BED. PT NO LONGER ON HEART MONITOR.
--- NOTE | 2016-12-14 14:26 | NUR ---
PT HONEST WITH ME TODAY ABOUT HIS STRUGGLE TO DEAL WITH THE CHANGES IN HIS HEALTH. HE FEELS HE HAS LITTLE CONTROL OVER HIS MED. ISSUES AND DECISIONS AND HAS LOST SOME OF HIS CONTROL OVER LIFE HE KNEW IT IN GENERAL. I TOLD HIM THAT I APPRECIATED HIS OPENNESS WITH ME AND THAT I WOULD SEE IF WE COULD BEGIN TO GIVE SOME CONTROL BACK. HE THANKED ME. I SHARED THIS WITH HIS NURSE AND CHARGE NURSE. THEY BEGAN TO THINK OF WAYS TO HELP. WILL CONTINUE TO FOLLOW
--- NOTE | 2016-12-14 15:28 | NUR ---
PT RESTING IN BED. NO COMPLAINTS OF PAIN. IV ABX RUNNING. TPN RUNNING.
--- NOTE | 2016-12-14 16:06 | NUR ---
SPOKE WITH PHARMACY RE: HEPRIN FLUSH NOT ON ORDER. ORDER FROM 12/12/16 STATES "NO HEPRIN WHATSOEVER INCLUDING FLUSHES." CONFIRMED WITH PHARMACY NO HEPRIN. IJ LINE WAS FLUSHED WITH NS IN PULSE FASHION.
--- NOTE | 2016-12-14 16:35 | NUR ---
SPOKE WITH LIBBY FROM PHARMACY RE: PT BAG OF TPN. PHARMACY STATED THAT THE BAG OF TPN SHOULD NOT HANG FOR MORE THAN 24 HOURS. TPN WAS WEANED >6HR AGO SO IT IS SAFE TO DC THE BAG.
--- NOTE | 2016-12-14 16:45 | NUR ---
TPN DISCONTINUED. LINE FLUSED WITH NORMAL SALINE DUE TO NO HEPRIN ORDER.
--- NOTE | 2016-12-14 17:56 | NUR ---
PT TRANSFERED FROM CCU. PT UP TO CHAIR FOR DINNER, PT TOLERATED LIQUIDS WELL. TPN DISCONTINED. NO HEPRIN IV OR SUB-Q DUE TO MD ORDER FOR NO HEPRIN. COLOSTMY BAG IS INTACT, STOMA PINK AND MOIST. SMALL AMOUNTS OF YELLOWISH MUCOUSY DISCHARGE IN BAG. NO BOWEL MOVEMENT THIS SHIFT. LANE CATHETER IN PLACE, DRAINING CLEAR YELLOW URINE. PT IS WITHDRAWN WITH FLAT AFFECT.
--- NOTE | 2016-12-14 20:35 | NUR ---
PT LAYING IN BED, NO APPARENT DISTRESS. ALERT AND ORIENTED X4. RATES PAIN AT 6/10, "WORSE IF I MOVE," GAVE NORCO FOR PAIN. OSTOMY PUT OUT DARK GREEN/BROWN STOOL. PT DENIES NAUSEA. GAVE FRESH ICE WATER. NO FURTHER NEEDS. CALL LIGHT IN REACH.
--- NOTE | 2016-12-14 20:36 | NUR ---
PT C/O ABD PAIN 5-11/14, 1 TAB NORCO GIVEN. CALL LIGHT WITHIN REACH. PT DENIES ANY FURTHER NEEDS AT THIS TIME.
--- NOTE | 2016-12-14 22:33 | NUR ---
PT RESTING QUIETLY, LIGHTS AND TV OFF IN ROOM. CALL LIGHT IN REACH.
--- NOTE | 2016-12-15 03:05 | NUR ---
PT AWAKE WHEN ENTERING ROOM, RESTING IN THE DARK QUIETLY. NO APPARENT DISTRESS. PT RATES PAIN AT 4/10, GAVE NORCO PER REQUEST. EMPTIED OSTOMY BAG, DARK GREEN CHUNKY/LIQUID STOOL OUT. GAVE FRESH ICE WATER. NO FURTHER NEEDS.
--- NOTE | 2016-12-15 04:00 | NUR ---
PT APPEARS TO BE SLEEPING. RR WNL AND UNLABORED.
--- NOTE | 2016-12-15 05:39 | NUR ---
PT HAD UNEVENTFUL NIGHT, RESTED QUIETLY. OSTOMY PUTTING OUT MODERATE AMOUNTS OF DARK GREEN STOOL. MIDLINE IS WELL APPROXIMATED AND STAPLE ARE INTACT. PT RECIEVED NORCO X2 OVERNIGHT FOR 5-6/10 PAIN. PT ALERT AND MOSTLY ORIENTED, FORGETFUL AT TIMES. LANE DRAINING FREELY.
--- NOTE | 2016-12-15 07:31 | NUR ---
RECIEVED BEDSIDE REPORT FROM YOVANI MARTINEZ. PT AWAKE AND ALERT. DR. ROY ROUNDED WITH NEW ORDERS OF 1) TEACH PT AND FAMILY ILEOSTOMY CARE AND 2) HOME HEALTH CONSULT FOR NEW ILEOSTOMY CARE. PT HAS STATED HE MAY GO TO [place] WITH FAMILY AFTER DISCHARGE.
--- NOTE | 2016-12-15 09:10 | NUR ---
ARIANA DC BY MED STUDENT AND RN. MINOR BLEEDING. PT REPORTED SOME PAIN, PRN OXY EFFECTIVE. PT BACK TO BED, WAS UP IN CHAIR FOR BREAKFAST. SMALL AMOUNT OF SMEARING ON BED/CHAIR. SPLITTING MACHINE OPERATOR HELPER REPORTED BLOOD IN TOILET, WILL CONTINUE TO MONITOR.
--- NOTE | 2016-12-15 10:01 | NUR ---
EVERY OTHER STAPLE REMOVED, PT TOLERATED WELL. WOUND EDGES ARE WELL APROXAMATED, WITH SLIGHT CRUSTINESS AROUND ADDY. NO REDNESS, WARMTH, OR ACTIVE DRAINAGE.
--- NOTE | 2016-12-15 10:20 | NUR ---
PT SLEEPING WELL, BREATHING EVEN AND UNLABORED.
--- NOTE | 2016-12-15 11:45 | NUR ---
PT IN CHAIR, RESTING. HAS A VISITOR IN ROOM.
--- NOTE | 2016-12-15 11:56 | NUR ---
SPOKE WITH DR. ROY REGARDING PAIN CONTROL. DR ROY STATED TO TRY 1-2 TABS OF NORCO Q4HRS PRN. IF THAT IS NOT EFFECTIVE, CALL DR ROY.
--- NOTE | 2016-12-15 13:38 | NUR ---
JIMY, PATIENT'S FRIEND, IS HERE AND READY TO REVIEW NUTRITION FOR ILEOSTOMY. I PROVIDED A HANDOUT WITH TIPS ON FOODS RECOMMENDED, NOT RECOMMENDED, TIPS FOR EATING LIKE EATING SLOWLY, CHEW FOOD WELL, AND DRINK 8 TO 10 CUPS OF FLUID (NOT COUNTING CAFFEINATED BEVERAGES). WE REVIEWED HOW TO MAKE ORAL HYDRATION SOLUTION FOR REPLACING ELECTROLYTES. A CHEWABLE OR LIQUID VITAMIN AND CALCIUM SUPPLEMENT IS RECOMMENDED. PATIENT IS NOT EATING MUCH AT MEALS, BUT HE IS TRYING TO EAT SOMETHING. HE DOES LIKE THE ENSURE AND I HIGHLY RECOMMENDED TO CONTINUE DOING SO BETWEEN MEALS, 2 A DAY, AT HOME. JIMY GREATLY APPRECIATED THE INFO. I TOLD HER TO CALL ME IF SHE HAS ANY QUESTIONS IN THE FUTURE.
--- NOTE | 2016-12-15 14:12 | NUR ---
PT SITTING IN CHAIR-EATING CHEESECAKE. HIS PCG HAD JUST LEFT, AND SEEMS TO HAVE BRIGHTENED HIS SPIRITS. PT STILL HAD A HARD TIME FINISHING SOME THOUGHTS. WILL CONTINUE TO FOLLOW
--- NOTE | 2016-12-15 15:48 | NUR ---
PT ASSISTED BACK TO BED. EMPTIED OSTOMY BAG. PT TEACHING COVERING SUPPLIES, TERMINOLOGY, AND MAINTENANCE. PT ASKED QUESTIONS AND EXPRESSED INTREST IN OSTOMY CARE. ALL QUESTIONS ANSWERED. PT STATED HE "FELT MUCH BETTER" AFTER CHANGE IN PAIN MEDICATION. PT MOVED WITHOUT GRIMANCING, MOANING, OR CLENCHING. PT SHOWED RELAXED FACIAL EXPRESSION. DEPENDENT EDEMA IN LOWER LEGS. ENCOURAGE PT TO KEEP LEGS ELEVATED WHILE IN BED AND CHAIR.
--- NOTE | 2016-12-15 15:49 | NUR ---
PT SITTING UP IN CHAIR TAKING A NAP. STATED EARLIER THAT THE 2 NORCO WORKED MUCH BETTER AND WAS ACTUALLY TALKATIVE.
--- NOTE | 2016-12-15 16:00 | NUR ---
ENCOURAGED PT TO USE RESTROOM SINCE IT HAD BEEN AWHILE SINCE HE HAD URINATED. PT DENIED FEELING THE URGE, HAD GONE IN HIS DEPENDS, UNMEASURABLE. BLADDER SCANNED FOR 136.
--- NOTE | 2016-12-15 18:01 | NUR ---
PT ATE VERY LITTLE OF HIS DINNER. STATES HE IS NOT VERY HUNGRY. CHANGED IJ DRESSING WITHOUT DIFFICULTY. PT TOLERATED WELL.
--- NOTE | 2016-12-15 18:05 | NUR ---
PT BLOOD SUGAR CHECK DC, INSULIN DC. TOLERATING DIET WELL. ILEOSTOMY FUNCTIONING WELL, EMPTIED NEEDED. WAFER INTACT. STOMA PINK AND MOIST, PERIWOUND SKIN INTACT. ABD INCISION C/D/I. EVERY OTHER STAPLE REMOVED THIS AM. WOUND EDGES WELL APROXIMATED. IJ DRESSING CHANGED THIS SHIFT. PT TOLERATED WELL. PAIN MEDICATION INCREASED TO 1-2 TABS Q4 PRN. PT RESPONDED WELL TO CHANGE, REPORTS MUCH LESS PAIN. DISCHARGE PLANNING UNDERWAY, PT TEACHING RE: ILEOSTOMY CARE STARTED.
--- NOTE | 2016-12-15 21:50 | NUR ---
PT LAYING IN BED, AWAKE. ALERT BUT SEEMS A LITTLE CONFUSED, PT NOT ORIENTED TO TIME. PLACED BED ALARM ON PT FOR SAFETY. PT COMPLAINED OF 9/10 PAIN, GAVE NORCO 1 TAB FOR PAIN. PT ABLE TO USE HIS CELL PHONE TO CALL AND TALK WITH HIS SISTER. PT HAS NO FURTHER NEEDS. GAVE FRESH ICE WATER. CALL LIGHT IN REACH.
--- NOTE | 2016-12-16 00:20 | NUR ---
PT RESTING QUIELTY. LIGHTS AND TV OFF IN ROOM.
--- NOTE | 2016-12-16 00:43 | NUR ---
PT DRY HEAVING, NO EMESIS, GAVE ZOFRAN FOR NAUSEA.
--- NOTE | 2016-12-16 03:13 | NUR ---
PT APPEARS TO BE SLEEPING. LIGHTS AND TV OFF IN ROOM. RR WNL AND UNLABORED.
--- NOTE | 2016-12-16 05:01 | NUR ---
PT UP TO BATHROOM TO VOID, USED URINAL IN RESTROOM. ALSO INCONTINENT IN DEPENDS. PT CLEANED UP AND BACK TO BED. NO FURTHER NEEDS. CALL LIGHT IN REACH.
--- NOTE | 2016-12-16 06:49 | NUR ---
PT SLEPT MAJORITY OF SHIFT. NAUSEOUS X1, NO EMESIS, AND PASSED WITHIN A FEW MINUTES OF DRY HEAVING, ZOFRAN GIVEN. GOOD OUTPUT IN OSTOMY. VOIDING QS. INCONTINENT X1. ALERT AND ORIENTED, BUT FORGETFUL AT TIMES. COOPERATIVE.
--- NOTE | 2016-12-16 07:10 | NUR ---
REPORT RECEIVED FROM FINISHING PAN OPERATOR RN USING 5 P'S. PT SLEEPING IN BED. RESP EVEN, UNLABOURED. NO S/S DISTRESS. DOOR AND CURTAIN OPEN TO RN STATION. CALL LIGHT IN REACH.
--- NOTE | 2016-12-16 09:30 | NUR ---
PT ASSISTED TO CHAIR FOR BREAKFAST. 1 PERSON SBA. PT STEADY ON FEET. TAKES AM MEDS WITHOUT DIFFICULTY. GIVEN 1 NORCO FOR MINIMAL PAIN TO ASSIST WITH MOVEMENT. PT DENIES ADDITIONAL NEEDS. CALL LIGHT IN REACH.
--- NOTE | 2016-12-16 10:30 | NUR ---
PT LATESHA'D FOR SHOWER.
--- NOTE | 2016-12-16 13:25 | NUR ---
SPOKE WITH PT DAUGHTER WENDY AND SHE STATED SHE WILL BE HERE AT [address] FOR TEACHING FOR THE CARE OF HIS ILEOSTOMY. ALSO CALLED HOME HEALTH AND THEY WILL HAVE A NURSE COME DOWN AND ASSIST WITH THAT TEACHING. NURSING STAFF INFORMED OF THIS.
== END 2016-12-16 10:30 | disposition swing bed (61) | DRG 329 ==
LOC: MS 19:39 → CCU 19:39 → MS 12-11 11:45 → CCU 12-12 17:10 → MS 12-14 12:05
PROVIDERS: ADMIT Colon & Rectal Surgery
PROC: 0DBP8ZX Excision of Rectum, Via Natural or Artificial Opening Endoscopic, Diagnostic (ICD-10-PCS; 2016-12-01)
PROC: 0DBN8ZX Excision of Sigmoid Colon, Via Natural or Artificial Opening Endoscopic, Diagnostic (ICD-10-PCS; 2016-12-01)
PROC: 0DBL8ZX Excision of Transverse Colon, Via Natural or Artificial Opening Endoscopic, Diagnostic (ICD-10-PCS; 2016-12-01)
PROC: 0DBF8ZX Excision of Right Large Intestine, Via Natural or Artificial Opening Endoscopic, Diagnostic (ICD-10-PCS; 2016-12-01)
PROC: 0DBG8ZX Excision of Left Large Intestine, Via Natural or Artificial Opening Endoscopic, Diagnostic (ICD-10-PCS; 2016-12-01)
PROC: 0DBH8ZX Excision of Cecum, Via Natural or Artificial Opening Endoscopic, Diagnostic (ICD-10-PCS; principal; 2016-12-01 10:00)
PROC: 02HV33Z Insertion of Infusion Device into Superior Vena Cava, Percutaneous Approach (ICD-10-PCS; 2016-12-04)
PROC: 0DTE0ZZ Resection of Large Intestine, Open Approach (ICD-10-PCS; 2016-12-08)
PROC: 0D1B0Z4 Bypass Ileum to Cutaneous, Open Approach (ICD-10-PCS; 2016-12-08)
PROC: 5A09357 Assistance with Respiratory Ventilation, Less than 24 Consecutive Hours, Continuous Positive Airway Pressure (ICD-10-PCS; 2016-12-12)
DX: K50.113 Crohn's disease of large intestine with fistula (principal); K63.1 Perforation of intestine (nontraumatic); G92 Toxic encephalopathy; E44.0 Moderate protein-calorie malnutrition; I47.2 Ventricular tachycardia; N17.9 Acute kidney failure, unspecified; E87.70 Fluid overload, unspecified; E86.0 Dehydration; E83.39 Other disorders of phosphorus metabolism; E87.6 Hypokalemia; I10 Essential (primary) hypertension; I35.1 Nonrheumatic aortic (valve) insufficiency; E83.51 Hypocalcemia; M47.9 Spondylosis, unspecified; M19.042 Primary osteoarthritis, left hand; M19.041 Primary osteoarthritis, right hand; K64.4 Residual hemorrhoidal skin tags; E83.42 Hypomagnesemia; R73.03 Prediabetes; M62.81 Muscle weakness (generalized); D69.6 Thrombocytopenia, unspecified; T42.4X5A Adverse effect of benzodiazepines, initial encounter; Z87.891 Personal history of nicotine dependence; Z85.828 Personal history of other malignant neoplasm of skin; Z85.46 Personal history of malignant neoplasm of prostate; Z68.24 Body mass index [BMI] 24.0-24.9, adult; Z79.82 Long term (current) use of aspirin; Z79.899 Other long term (current) drug therapy; Y92.239 Unspecified place in hospital as the place of occurrence of the external cause
CPT/HCPCS: 00790; 36415; 36600; 71010; 74020; 80048; 80053; 80061; 80069; 80076; 82378; 82607; 82728; 82746; 82803; 83036; 83540; 83735; 83880; 84100; 84134; 84153; 84466; 85025; 85045; 85610; 85730; 86022; 87045; 87046; 87177; 87205; 87209; 87329; 87493; 88305; 93005; 93010; 93306; 93970; 94660; 94760; 97110; 97116; 97162; 99152; 99153; J0461; J0610; J0692; J1100; J1170; J1644; J1652; J1885; J2060; J2250; J2370; J2405; J2704; J2765; J2920; J3010; J3430; J3475; J3480; J7030; J7060; J7120; J7512; P9047

== ENCOUNTER 2016-12-16 10:30 | Inpatient (IN) | payer MEDICARE, OTHER ==
[~2016-12-16] VITALS: Ht 177.8 cm; Wt 76.2 kg
[~2016-12-16 10:30] MED LIST: BALNEOL CLEANSI89 ML TOP; LISINOPRIL-HCT1 EACH PO; MESALAMINE800 MG PO; METOPROLOL SUCC50 MG PO; MIRALAX17 GM PO; PREDNISONE10 MG PO; PREPARATION H26 GM TOP
--- NOTE | 2016-12-16 11:05 | NUR ---
MED REC COMPLETE--SWING
--- NOTE | 2016-12-16 13:12 | NUR ---
Shaved patient's face while sitting up in chair. Patient back to bed per request.
--- NOTE | 2016-12-16 13:37 | NUR ---
PT RESTING IN BED. I COULD TELL HE WANTED TO REST. SHOOK HIS HAND, WE EXCHANGED JOKES AND I EXTENDED A BLESSING TO HIM. WILL CHECK AGAIN
--- NOTE | 2016-12-16 14:13 | NUR ---
RIJ REMOVED WITHOUT DIFFICULTY WNL. PT TOLERATED WELL. PT LYING FLAT WITH OCCLUSIVE DRESSING TO RIJ SITE. PT WOULD LIKE TO REST. LEFT ALONE AT THIS TIME. CALL LIGHT IN REACH. BED ALARM ON.
--- NOTE | 2016-12-16 16:31 | NUR ---
PT GIVEN ZOFRAN FOR COMPLAINTS OF "RUMBLING." PT UNABLE TO DIFFERENTIATE BETWEEN PAIN AND NAUSEA. STATES DOES NOT WANT TO TAKE MORE PAIN MEDICATION AT THIS TIME, BUT AGREES TO TAKE ZOFRAN. OSTOMY BAG FULL OF AIR AND STOOL. FAMILY DUE ANYTIME FOR OSTOMY TEACHING. BAG BURPED, BUT NOT EMPTIED DUE TO WAITING FOR FAMILY FOR TEACHING. WILL CONTINUE TO MONITOR IN CASE FAMILY LATE. PT DENIES NEEDS. CALL LIGHT IN REACH.
--- NOTE | 2016-12-16 17:12 | NUR ---
HOME HEALTH RN IN TO PROVIDE OSTOMY TEACHING TO PT AND FAMILY.
--- NOTE | 2016-12-16 17:26 | NUR ---
PT HAS HAD UNEVENTFUL DAY. MEDICATED X 1 FOR PAIN. DECLINES PAIN MED REST OF SHIFT. GIVEN ZOFRAN X 1. UP TO CHAIR FOR MEALS. CL DC'D. SWING BED STATUS. HOME HEALTH IN FOR OSTOMY TEACHING WITH FAMILY AND PT. SBA TO CHAIR. ALLEVYN DRESSING APPLIED TO SACRUM. PT POSITIONED ON PILLOWS AND TURNED THROUGHOUT SHIFT TO AVOID PRESSURE ON COCCYX, BACK. ALLEVYN PLACE TO UPPER BACK PER MD FOR DEVELOPING REDNESS WITH CONTACT TO BED/CHAIR. POOR APPETITE.
--- NOTE | 2016-12-16 19:30 | NUR ---
PT HAS SEVERAL VISITORS IN ROOM. PT ALERT AND ORIENTED, VISITING WITH FAMILY, ENGAGING IN CONVERSTATIONS. PT IS IN NO DISTRESS AT THIS TIME. LAYING IN BED. CALL LIGHT IN REACH. DENIES NEEDS AT THIS TIME.
--- NOTE | 2016-12-16 20:27 | NUR ---
PT SITTING UP IN CHAIR, EATING HIS DINNER. NO NEEDS AT THIS TIME. CALL LIGHT IN REACH.
--- NOTE | 2016-12-17 00:12 | NUR ---
PT APPEARS ASLEEP, RR WNL AND UNLABORED. LIGHTS AND TV OFF IN ROOM. VISIBLE FROM NURSES STATION.
--- NOTE | 2016-12-17 04:26 | NUR ---
PT SLEEPING, RR WNL AND UNLABORED.
--- NOTE | 2016-12-17 05:47 | NUR ---
pt up to bathroom, tolerated standby assist with fww very well, steady on feet, able to stand up by self. pt refuses pain medication, states "i dont really think i need it right now, i feel pretty good." ostomy wnl, ostomy bag emptied, pt very motivated to learn how to care for his ostomy, states "im going to be full of questions." demonstrated to pt and did some teaching on emptying bag. pt denies further needs. call light in reach.
--- NOTE | 2016-12-17 06:55 | NUR ---
PT WELL OVERNIGHT. ILEOSTOMY PUTTING OUT MODERATE AMOUNT OF BROWN LIQUID STOOL. STANDBY ASSIST WITH FWW. PT ALERT AND ORIENTED X4, PLEASENT DEMEANOR. PAIN WELL CONTROLLED WITH 1 TAB NORCO. PT ATE SANDWICH LAST NIGHT FOR DINNER.
--- NOTE | 2016-12-17 08:20 | NUR ---
PATIENT SITTING UP IN BED, EATING BREAKFAST. NO COMPLAINTS OF PAIN AT THIS TIME. ILEOSTOMY INTACT, SOME DRAINAGE IN BAG. PATIENT STATES " I SLEPT WELL LAST NIGHT". VS STABLE. LUNG SOUNDS CLEAR.
--- NOTE | 2016-12-17 09:09 | NUR ---
STOPPED BY PATIENT'S ROOM AT 0855 TO SEE HOW HE DID WITH BREAKFAST. HIS ORDER WAS SCRAMBLED EGGS AND 2 SLICES MARROQUIN AND COFFEE. HE AT 90% OF THE EGGS, 100% OF THE MARROQUIN AND 0% OF THE COFFEE. HE STATES HE IS FEELING OK AFTER EATING. HE HASN'T BEEN DRINKING ENSURE YESTERDAY BECAUSE IT FILLS HIM UP THEN HE DOESN'T WANT TO EAT. HE LIKES THEM OK, BUT THEY ARE FILLING. I SAID HOW ABOUT IF YOU EAT LESS THAN HALF OF YOUR MEAL, YOU DRINK AN ENSURE? HE AGREED TO THAT. CONTINUE TO ENCOURAGE OPTIMAL PO INTAKE ON REGULAR DIET.
--- NOTE | 2016-12-17 09:52 | NUR ---
PT IS RESTING IN BED SAFELY WITH CALL LIGHT IN REACH. VITALS TAKEN. PT WOULD LIKE TO SHOWER, WILL CHECK WITH DOCTOR IF PT CAN.
--- NOTE | 2016-12-17 11:47 | NUR ---
PT SLEEPING VERY SOUNDLY. I WILL LET HIM REST AND RETURN LATER. GOD BLESS HIM
--- NOTE | 2016-12-17 12:43 | NUR ---
PATIENT UP TO RECLINER, TRANSFERED WELL. EATING LUNCH. LUNG SOUNDS CLEAR. ILEOSTOMY PUTTING OUT LIQUID, 200 ML WITH UNDIGESTED PILLS. NOTIFIED DR. IYER OF SEEN PILLS IN ILEOSTOMY OUTPUT.
--- NOTE | 2016-12-17 14:21 | NUR ---
PT JUST FINISHED WITH PHYSICAL THERAPY AND IS RESTNG IN BED WITH CALL LIGHT IN REACH.
--- NOTE | 2016-12-17 16:45 | NUR ---
PATIENT TO SHOWER, CHANGED ILEOSTOMY APPLIANCE. PATIENT PARTICPATED. ASKED QUESTIONS APROPRIATLEY AND APPEARED TO BE INTERESTED IN THE CARE. VERBALIZED WANTING TO CHANGE ILEOSTOMY TOMORROW.
--- NOTE | 2016-12-17 17:43 | NUR ---
PT JUST FINISHED EATING DINNER AND IS NOW RESTING IN BED WITH CALL LIGHT IN REACH. PT DID NOT NEED ANYTHING AT THE MOMENT
--- NOTE | 2016-12-17 18:03 | NUR ---
PATIENT UP IN RECLINER FOR MEALS, WORKED WITH PHYSICAL THERAPY. FAMILY AT BEDSIDE VISITING TODAY. PATIENT PAIN WELL CONTROLLED NEEDED PO PAIN MEDICATION AFTER EXERTION WITH PHYSICAL THERAPY. VS STABLE. PATIENT PARTICPATED IN STOMA CARE AND WAS UP TO SHOWER.
--- NOTE | 2016-12-17 19:35 | NUR ---
IN TO MEET PT, TALKING ON THE PHONE WITH FAMILY, PT DESCRIBES HAVING GOOD DAY WITH PT, PT DESCRIBES BEING UPSET ABOUT AN CONVERSATION WITH CASE MANAGEMENT EARLIER TODAY ABOUT CARING FOR HIS STOMA. PT STATES HE FELT THAT HE WAS DOING WELL AND WAS TAKEN OFF GAURD BY THE CONVERSATION. PT STATES HE IS FEELING LIKE IT IS HARD TO PROCESS HIS CURRENT MEDICAL NEEDS. PT STATES HE HAS NO NEEDS AT THIS TIME. ADVISED THAT IF HE HAS ANY QUESTIONS OR CONCERNS PLEASE ASK. CALL LIGHT WITHIN REACH.
--- NOTE | 2016-12-17 20:07 | NUR ---
INTO SEE PT, PT WATCHING TV, PT STATES THAT SHE HAS HAD A BUSY DAY WITH RT AND PT. NO FURTHER NEEDS AT THIS TIME. CALL LIGHT WITHIN REACH.
--- NOTE | 2016-12-17 22:18 | NUR ---
IN TO CHECK PT, PT SLEEPING.
--- NOTE | 2016-12-18 00:39 | NUR ---
IN TO CHECK ON PT, PT APPEARS TO BE SLEEPING, CALL LIGHT WITHIN REACH.
--- NOTE | 2016-12-18 01:36 | NUR ---
IN TO CHECK ON PT, AWAKE AND DOING WELL. OSTOMY BAG DRAINED. NO FURTHER NEEDS AT THIS TIME, CALL LIGHT WITHIN REACH.
--- NOTE | 2016-12-18 04:05 | NUR ---
IN TO CHECK ON PT, PT AWAKE. PT STATES HE IS UNABLE TO SLEEP AND STATES HE HAS BEEN THINKING ABOUT HIS DISCHARGE. PT STATES HE IS ANXIOUS ABOUT NEEDING SUPPLIES FOR HIS OSTOMY. PT IS CONCERNED THAT HE WILL NOT BE ABLE TO BE ABLE TO CARE FOR HIS OSTOMY. PT REASSURED THAT HE WILL NOT BE DISCHARGE WITHOUT THE SUPPLIES OR HELP NEEDED TO CARE FOR HIS OSTOMY. PT IS CONCERNED REGARDING HIS DECISION OF IF HE WOULD LIKE TO DISCHARGE TO HOME OR GO TO [facility] WITH HIS DAUGHTER. PT REASSURED THAT STAY WITH HIS DAUGHTER MAY BE HELPFUL IN HIS RECOVERY AND MAY ONLY BE TEMPORARY. ADVISED PT THAT IF HE HAS FURTHER QUESTION TO CALL AND I WILL CHECK IN ON HIM SOON. PT AGREES TO TRY TO REST, CALL LIGHT WITHIN REACH.
--- NOTE | 2016-12-18 04:27 | NUR ---
PT HAS NOT SLEPT A MAJORITY OF THE NIGHT DUE TO BEING ANXIOUS ABOUT CARING FOR HIS OSTOMY. REASSURANCE GIVEN THROUGHOUT THE SHIFT. PT AGREES TO TRY TO REST FOR THE REMAINDER OF THE SHIFT.
--- NOTE | 2016-12-18 06:51 | NUR ---
IN TO SEE PT FOR 0700 MEDICATION, PT UP TO CHAIR. NO FURTHER NEEDS AT THIS TIME. CALL LIGHT WITHIN REACH.
--- NOTE | 2016-12-18 09:00 | NUR ---
ENCOURAGING PATIENT TO DRINK FLUIDS, HAS DRANK 150 ML OF COFFEE, 100 ML OF WATER, SOME SIPS OF SLADE ENSURE, AND 300 ML OF ORANGE JUICE. PATIENT STATES " I CAN ONLY DRINK SO MUCH". PROVIDED PATIENT WITH EDUCATION ON IMPORTANCE OF DRINKING AT LEAST 2000 ML OF FLUIDS A DAY, AND THE FLUIDS LOST FROM THE ILEOSTOMY. ILEOSTOMY PUTTING OUT WATERY STOOL. PAIN WELL CONTROLLED. VS STABLE. NOTED DARK BROWNISH URINE.
--- NOTE | 2016-12-18 09:50 | NUR ---
PT IS LYING BED, VITALS TAKEN. PT NOW WORKING WITH OCCUPATIONAL THERAPY.
--- NOTE | 2016-12-18 11:35 | NUR ---
PATIENT ATE 80% OF [place] TOAST, SCRAMBLED EGGS, MARROQUIN, AND MILK FOR BREAKFAST. HE IS TOO FULL FOR LUNCH, SO HE ORDERED AN ENSURE ONLY. LAST NIGHT HE ATE 90% OF A WHOLE SANDWICH. INTAKE IS GETTING BETTER. NO INTERVENTION AT THIS TIME. CONTINUE REGULAR, SOFT DIET WITH ENSURE IF LESS THAN 50% OF MEAL CONSUMED OR IF PATIENT DOESN'T WANT FOOD FOR A MEAL. WILL CONTINUE TO MONITOR.
--- NOTE | 2016-12-18 12:39 | NUR ---
PT RESTING IN BED, HAD FINISHED UP HIS SHAKES FOR LUNCH. HE IS ALERT AND READY TO TALK. HE HAS HAD A LOT OF TIME TO THINK-TOO MUCH HE SAYS. THE STRUGGLE HE HAS IS WANTING TO BE SELF SUFFICIENT, BUT AFTER HIS SHOWER THIS MORNING, HE HAS PAINFULLY DISCOVERED HE NEEDS HELP. A FRIEND CAME IN TO VISIT, WE WILL CONTINUE THIS DISCUSSION, GOD BLESS HIM
--- NOTE | 2016-12-18 13:00 | NUR ---
PATIENT UP AMBULATING WITH PHYSICAL THERAPY, CONTINUES TO DRINK WATER AND SIP ON ENSURE. PUSHING FLUIDS, PATIENT APPEARS RESISTANT STATING " I WILL DRINK WHAT I WANT WHEN I WANT". ASSURES NURSE HE IS DRINKING ALOT, DOES NOT APPEAR TO BE MUCH, MAYBE 50 ML. PATIENT DRANK ANOTHER 100 ML WHILE THIS NURSE WAS IN ROOM.
--- NOTE | 2016-12-18 14:12 | NUR ---
PT IS LYING IN BED READING NEWSPAPER/ NAPPING. PT DID NOT EAT LUNCH BUT IS WORKING ON DRINKING AN ENSURE. REMINDED PT TO DRINK HIS FLUIDS.
--- NOTE | 2016-12-18 18:03 | NUR ---
PATIENT UP IN ROOM, EMPTIED ILEOTOMY BAG WITH MINIMAL HELP. CONTINUES TO DRINK WATER, CONTINUED TO PUSH FLUIDS. PATIENT VOIDING WELL. URINE LESS DARK BUT STILL BROWNISH. VS STABLE. PAIN WELL CONTROLLED. FAMILY IN TO VISIT PATIENT.
--- NOTE | 2016-12-18 18:31 | NUR ---
PT IS SITTING UP IN CHAIR WAITNG FOR HIS DINNER TRAY TO ARRIVE. PT DID NOT NEED ANYTHING ELSE AT THE MOMENT
--- NOTE | 2016-12-18 20:00 | NUR ---
RECEIVED REPORT AT 1900, PT WAS IN CHAIR EATING SOUP, FAMILY WAS AT BEDSIDE. PT SEEMED IN GOOD SPIRITS.
--- NOTE | 2016-12-18 22:00 | NUR ---
STOMA IS FLESHY RED, THERE IS LIQUID STOOL IN POUCH. TWO UPPER QUADRANTS HAVE BOWEL TONES PRESENT. PT DENIES PAIN AT THIS TIME. PERICARE WAS DONE. ALL LOBES ARE CLEAR, PT STILL HAS A COUGH THAT IS NON-PRODUCTIVE. V/S ARE WNL. PT HAS +3 PERIPHERAL EDEMA ON LLE AND LLR, DORSALIS PEDIS PULSE IS +1. BOTH ARMS HAVE +2 PERIPHERAL EDEMA. PT IS TRYING TO SLEEP AT THIS TIME.
--- NOTE | 2016-12-19 01:06 | NUR ---
PT IS AWAKE IN BED. PT STATED THAT HE HAS A LOT TO THINK ABOUT. PT SEEMS TO STRUGGLE WITH HIS NEW SITUATION SOME. PT DENIES PAIN AT THIS TIME.
--- NOTE | 2016-12-19 04:04 | NUR ---
PT SEEMS TO BE SLEEPING.
--- NOTE | 2016-12-19 05:44 | NUR ---
PT HAD AN UNEVENTFUL NIGHT. PT WAS AWAKE SOME PARTS OF THE NIGHT THINKING ABOUT HIS SX AND THE CHANGES IT BROUGHT. PT DENIED PAIN ALL SHIFT.
--- NOTE | 2016-12-19 08:09 | NUR ---
Patient assisted up to the chair with minimal assist. Patient ordered breakfast. Patient stated he showered yesterday and does not know if he needs one today. No other requests at this time.
--- NOTE | 2016-12-19 08:24 | NUR ---
PATIENT SITTING UP IN RECLINER, DISCUSSED POC WITH DATA INTEGRITY SPECIALIST AND PATIENT. PLAN TO BE MORE INVOLVED WITH ILEOSTOMY CARE, PATIENT PARTICIPATING IN DUMPING CONTENTS OF BAG. PATIENT VERBALIZED UNDERSTANDING. PATIENT IS READING NEWSPAPER. PLAN TO SHOWER.
--- NOTE | 2016-12-19 12:10 | NUR ---
PATIENT IS EATING LUNCH AND HAS A VISITOR IN HIS ROOM AT THIS TIME.
--- NOTE | 2016-12-19 15:00 | NUR ---
PATIENT UP TO BATHROOM, ATTEMPTED TO SELF EMPTY ILEOSTOMY BAG, SPILLED ALL OVER, PROVIDED PATIENT WITH ENCOURAGMENT, PATIENT CONTINUED TO ATTEMPT TO PUT NEW BAG ON AND WIPE STOMA. PATIENT APPEARED TO TOLERATE WELL. LARGE AMOUNT OUT. PATIENT DRANK 200 ML OF JUICE, 300 ML OF ENSURE, 400 ML OF SOUP, AND 300 ML OF WATER TODAY TOTAL OF 120O ML FOR DAY. PATIENT STATES WILL TRY TO CONTINUE TO SIP FLUIDS, URINE APPEARS LESS DARK. GOOD URINE OUTPUT. EDEMA TO LEGS 3+ PITTING EDEMA. PATIENT WEIGHED SELF 189LBS.
--- NOTE | 2016-12-19 18:54 | NUR ---
PATIENT PARTICITPATING IN ILEOSTOMY CARE THROUGHOUT DAY. UP AMBULATING IN HALLS, WORKED WITH PHYSICAL THERAPY. NOTED 3+ PITTING EDEMA IN LOWER EXTREMITIES ENCOURAGED TO ELEVATE. ALSO DRANK TOTAL OF 1200 ML OF FLUID TODAY.
--- NOTE | 2016-12-19 20:00 | NUR ---
RECEIVED REPORT AT 1900. FOUND PT IN BED AND IN GOOD SPIRITS.
--- NOTE | 2016-12-19 22:00 | NUR ---
ALL LOBES ARE CLEAR, STOMA IS RED AND MOIST. OUTPUT THROUGH POUTCH IS GOOD. EDEMA IN BOTH LOWER EXTREMETIES IS +3, EDEMA IN BOTH ARMS IS +2. NO NEW ISSUES NOTED AT THIS TIME.
--- NOTE | 2016-12-19 23:02 | NUR ---
ROUNDED ON PATIENT. PATIENT AND FAMILY DENY AND COMPLAINTS OR CONCERNS. ALL QUESTIONS ANSWERED.
--- NOTE | 2016-12-20 01:16 | NUR ---
PT IS SLEEPING AT THIS TIME.
--- NOTE | 2016-12-20 01:16 | NUR ---
PT IS SLEEPING AT THIS TIME.
--- NOTE | 2016-12-20 02:26 | NUR ---
ASSISTED PT TO BATHROOM AND BACK TO BED. PT DENIES PAIN AT THIS TIME.
--- NOTE | 2016-12-20 04:02 | NUR ---
PT IS SLEEPING AT THIS TIME.
--- NOTE | 2016-12-20 05:04 | NUR ---
PT HAD AN UNEVENTFUL NIGHT. PT SLEPT MOST OF THE NIGHT. PT IS TRYING TO ACHIEVE HIS 1800-2000ML FLUID INTAKE GOAL. STOMA IS PUTTING OUT WELL.
--- NOTE | 2016-12-20 07:29 | NUR ---
RECIEVED BEDSIDE REPORT FROM YOVANI THORNTON. PT IS SLEEPING, BREATHING EVEN AND UNLABORED.
--- NOTE | 2016-12-20 11:05 | NUR ---
PT SLEEPING IN BED, BREATHING EVEN AND UNLABORED.
--- NOTE | 2016-12-20 11:13 | NUR ---
PT STATES "SHAKINESS" REPORTED DURING PHYSICAL THERAPY HAS RESOLVED.
--- NOTE | 2016-12-20 16:35 | NUR ---
REPOSITIONED PT IN BED. PT APPEARS COMFORTABLE.
--- NOTE | 2016-12-20 17:01 | NUR ---
PT TOLERATING REG DIET WELL. OSTOMY FUNCTIONING WELL, VOIDING WELL. PT ENCOURAGED TO DRINK FLUIDS, DID NOT MEET GOAL OF 1800ML. WILL ENCOURAGE GREATER INTAKE NEXT SHIFT. PT STEADY ON FEET WITH SBA AND FWW.
--- NOTE | 2016-12-20 20:11 | NUR ---
IN TO SEE PATIENT, PT AWAKE IN BED, SCD'S IN PLACE. PT DENIES PAIN. PT DENIES ANY NEEDS AT THIS TIME. CALL LIGHT WITHIN REACH.
--- NOTE | 2016-12-20 23:58 | NUR ---
IN TO CHECK ON PT, PT APPEARS TO BE SLEEPING, CALL LIGHT WITH IN REACH.
--- NOTE | 2016-12-21 02:37 | NUR ---
PT OUT OF BED WITHOUT CALL OR ASSIST TO USE THE BATHROOM. PT ASSISTED BACK TO BED, USE OF CALL LIG AND SAFETY OF CALLING FOR ASSIST DISCUSSED. PT UNDERSTANDS AND STATES HE WILL CALL FOR HELP IN THE FUTURE. NO FURTHER NEEDS AT THIS TIME. CALL LIGHT WITHIN REACH.
--- NOTE | 2016-12-21 04:48 | NUR ---
PT RESTING MOST OF THE NIGHT. OSTOMY FUNCTIONING WELL. PT ATTEMPTED TO AMBULATE TO THE BATHROOM WITHOUT ASSIST. REINFORCED USING THE CALL LIGHT AND STAFF ASSIST IN THE FUTURE FOR SAFETY. PT HAS REMAIN IN BED SINCE. CONTINUED TO ENCOURAGE FLUIDS.
--- NOTE | 2016-12-21 06:33 | NUR ---
pt complained of 3/10 pain in abd, "its just a little uncomfortable." gave norco for pain.
--- NOTE | 2016-12-21 07:34 | NUR ---
RECIEVED BEDSIDE REPORT FROM YOVANI ROSE AND YOVANI MARTINEZ. PT SLEEPING, BREATHING EVEN AND UNLABORED.
--- NOTE | 2016-12-21 09:11 | NUR ---
PT UP TO CHAIR FOR BREAKFAST. PT EDUCATION PROVIDED RE: CHANGING AND EMPTYING OSTOMY BAG. PT UNWILLING TO PARTCIPATE IN CARE AT THIS TIME, BUT WILLING TO LOOK AT OSTOMY.
--- NOTE | 2016-12-21 10:00 | NUR ---
PT STOMA IS PINK AND INTACT. SKIN AROUND STOMA IS INTACT. WAFER IS INTACT AND NOT LEAKING. PT IS MORE WITHDRAWN THIS AM.
--- NOTE | 2016-12-21 10:57 | NUR ---
PT ENCOURAGED TO EMPTY OSTOMY BAG. WITH SUPPORT FROM NURSING STAFF, PT EMPTYIED BAG. PT COMMENTED THAT HE COULD DO THIS AT HOME. RN WILL CONTINUE TO ENCOURAGE PT TO DO SELF-CARE.
--- NOTE | 2016-12-21 12:39 | NUR ---
THE DAYS SEEM TO REALLY BE DRAGGING ON FOR PT. HE IS TRYING TO KEEP HIS ATTITUDE UP. HE SEEMS TO BE THE TYPE OF PERSON THAT HAS BEEN SELF-SUFFICIENT, AND THE CHANGE IN HIS LIFE HAS HIT HIM LIKE A TON A BRICKS. STILL DEBATING WHETHER TO GO TO [facility] WHERE HIS FAMILY IS WAITING TO CARE FOR HIM, OR FIGURE OUT HOW HE CAN MANAGE AT HIS HOME IN [place]. WE HAVE HAD GOOD CONVERSATION, OPEN AND HONEST. WILL CONTINUE TO FOLLOW
--- NOTE | 2016-12-21 15:05 | NUR ---
PATIENT SITTING UP IN CHAIR WITH FEET ELEVATED. CALL BUTTON IN REACH. WARM BLANKET ON. NEW CUP AND FRESH ICE WATER. NO OTHER NEEDS AT THIS TIME.
--- NOTE | 2016-12-21 16:37 | NUR ---
Put lotion on after shaved.
--- NOTE | 2016-12-21 17:22 | NUR ---
PT EMPTYIED OSTOMY APPLIANCE WITH MINIMAL SUPPORT FROM RN. PT STATED THAT HE WAS NOT COMFORTABLE WITH THE PROCESS YET. PT UP WITH PHYSICAL THERAPY X2 AND TRANSFERED TO BED WITH NO ASSISTANCE FROM STAFF. PT TOLERATED ACTVITY WELL. PT INCREASED WATER INTAKE THIS SHIFT. URINE OUTPUT INCREASEING, EDEMA IN LOWER LEGS RESOLVING. SCD ON. OSTOMY OUTPUT WNL. STOMA PINK, PERIWOUND INTACT, APPLIANCE INTACT.
--- NOTE | 2016-12-21 19:50 | NUR ---
IN TO SEE PT, PT SLEEPING, SCDS IN PLACE, CALL LIGHT WITHIN REACH.
--- NOTE | 2016-12-21 23:29 | NUR ---
IN TO CHECK ON PT, PT RESTING IN BED, SCD'D IN PLACE, CALL LIGHT WITHIN PLACE.
--- NOTE | 2016-12-22 03:13 | NUR ---
IN TO CHECK ON PT, PT APPEARS TO BE SLEEPING, SCDS IN PLACE, CALL LIGHT WITHIN REACH.
--- NOTE | 2016-12-22 05:03 | NUR ---
PT HAD UNEVENTFUL SHIFT, RESTED WELL. UP WITH STANDBY ASSIST. OSTOMY OUTPUT WNL. APPLIANCE INTACT. PT REPORTS NO PAIN THROUGHOUT SHIFT.
--- NOTE | 2016-12-22 08:29 | NUR ---
patient sitting up in chair eating breakfast and talking to the Dr. room picked up. no other needs at this time.
--- NOTE | 2016-12-22 08:47 | NUR ---
RECIEVED BEDSIDE REPORT FROM YOVANI ROSE. PT AWAKE AND ALERT IN THE CHAIR. PT EATING BREAKFAST WELL. NO COMPLAINTS OF PAIN. PT AMBULATING WELL.
--- NOTE | 2016-12-22 11:57 | NUR ---
PT WAS IN BED, NOT DOING WELL. HE HAD JUST TRIED TO PUT SOME OF HIS STREET CLOTHES ON, AND IT WAS A REAL STRUGGLE FOR HIM. A LITTLE ANGRY, THE REALITY OF THE NEW NORMAL FOR HIM IS SITTING IN. HE DIDN'T NEED TO TALK. I LET HIM REST. WILL CHECK AGAIN. GOD BLESS HIM
--- NOTE | 2016-12-22 12:28 | NUR ---
ASSISTED PATIENT TO BATHROOM STAND BY ASSIST WITH WALKER. ASSISTED WITH BED BATH. ALEX CARE DONE SKIN CARE DONE. PATIENT UP TO CHAIR WITH FEET ELEVATED CALL BUTTON IN REACH. WARM BLANKET ON AND LUNCH ON TRAY.
--- NOTE | 2016-12-22 14:00 | NUR ---
TALKED WITH PT IN GREAT DETAIL ABOUT WHAT HE NEEDS TO ACCOMPLISH WHILE HE IS WORKING TOWARDS GOING HOME. PT REALLY WANTS TO GO HOME BUT I THINK HE NEEDS TO STAY WITH FAMILY/FRIEND FOR A WEEK OR SO TO GET MORE TEACHING FROM THE HOME HEALTH NURSES REGARDING HIS OSTOMY CARE. HE STATES THAT HE IS EMPTYING THE BAG HIMSELF AND HAS CHANGED THE BAG BUT NOT THE WAFER YET. PT WAS MORE INTERACTIVE YESTERDAY THAN HE HAS BEEN IN THE PAST AND FEELS HE IS GETTING CLOSE TO BEING READY FOR DC.
--- NOTE | 2016-12-22 17:33 | NUR ---
STAND BY ASSIST PATIENT TO BATHROOM THEN TO CHAIR TO EAT DINNER. CALL BUTTON IN REACH. WARM BLANKET GIVEN NO OTHER NEEDS AT THIS TIME.
--- NOTE | 2016-12-22 17:40 | NUR ---
PT UP TO CHAIR AND UP TO TOILET THIS SHIFT. PT PARTCIPATING IN OSTOMY CARE AND HOME CARE. EDEMA IS RESOLVING IN LOWER LEGS. VSS.
--- NOTE | 2016-12-22 20:33 | NUR ---
IN TO SEE PT, FAMILY JUST LEAVING, PT IN BED REASTING. NO FURTHER NEEDS AT THIS TIME. CALL LIGHT WITHIN REACH.
--- NOTE | 2016-12-22 22:43 | NUR ---
IN TO CHECK ON PT, PT APPEARS TO BE SLEEPING, CALL LIGHT WITHIN REACH.
--- NOTE | 2016-12-23 00:37 | NUR ---
IN TO CHECK ON PT, PT APPEARS TO BE SLEEPING LYING ON SIDE, NO APPARENT DISTRESS. CALL LIGHT WITHIN REACH.
--- NOTE | 2016-12-23 02:31 | NUR ---
IN TO CHECK ON PT, PT SLEEPING. CALL LIGHT WITHIN REACH.
--- NOTE | 2016-12-23 04:36 | NUR ---
PT REST THROUGH SHIFT. PT UP WITH ASSIST TO USE THE URINAL AT BEDSIDE. EDEMA IN BILAT LE RESOLVING. OSTOMY WNL.
--- NOTE | 2016-12-23 06:48 | NUR ---
pt complained of 2/10 pain in his abd and general body aches, gave norco for pain. no further needs. call light in reach.
--- NOTE | 2016-12-23 07:30 | NUR ---
REPORT RECIEVED FROM YOVANI ROSE. PT SLEPT MOST OF NIGHT. STILL SLEEPING NOW.
--- NOTE | 2016-12-23 07:45 | NUR ---
stand by assist with walker to chair. patient sitting up eating break fast. has no needs at this time. call button in reach.
--- NOTE | 2016-12-23 09:03 | NUR ---
HAD CARE TEAM MEETING IN THE PTS ROOM. PTS QUESTIONS ANSWERED. FEELS HE MIGHT BE READY TO GO HOME IN A FEW DAYS. APPREHENSIVE ABOUT TAKING ADDY OUT HIS DAUGHTER HAD A BAD EXPERIENCE.
--- NOTE | 2016-12-23 10:17 | NUR ---
CALLED DR ROY REGARDING ADDY. ASSISTED MED STUDENTS WITH REMOVING. PT TOLERATED WELL. ALL ADDY REMOVED. SITE WELL APPROX.
--- NOTE | 2016-12-23 11:52 | NUR ---
HAD PATIENT SIT UP IN CHAIR WITH LEGS ELEVATED. VISITOR IN ROOM. FRESH WATER GIVEN. CALL BUTTON IN REACH. NO OTHER NEEDS AT THIS TIME.
--- NOTE | 2016-12-23 12:20 | NUR ---
PT WALKED IN DAVILA WITH COLD MOLDING PRESS OPERATOR. APPEARED TO TOLERATE WELL.
--- NOTE | 2016-12-23 13:00 | NUR ---
Patient washed face and hands. new depends underwear. oral care done.
--- NOTE | 2016-12-23 13:55 | NUR ---
FAXED ORDER AND CHART NOTES TO [facility] FOR A FRONT WHEELED WALKER FOR PT. INCLUDED FACESHEET, ORDER, H AND P, PROG NOTE, DC NOTES FROM IN PT CHART. AND PT AND OT EVAL AND NOTES.
--- NOTE | 2016-12-23 14:00 | NUR ---
Patient requested to lay down in bed. He will rest then talk about a shower. call button in reach no other needs at this time.
--- NOTE | 2016-12-23 15:19 | NUR ---
PT APPEARS TO BE SLEEPING.
--- NOTE | 2016-12-23 15:39 | NUR ---
Patient awake with PT. will be into shower or bath afterwards.
--- NOTE | 2016-12-23 16:56 | NUR ---
PATIENT REFUSED SHOWER OR BATH. SHAVED HIS FACE. PATIENT SEEMS DOWN AND NOT TALKING MUCH.
--- NOTE | 2016-12-23 17:15 | NUR ---
PT WORKED WITH PHYS. THER. FEELS LIKE HE PULLED A GROIN MUSCLE. HAS NOT EATEN OR DRANK ENOUGH TODAY AND REFUSES TO DO SO. EMPTIED OSTOMY SEVERAL TIMES.
--- NOTE | 2016-12-23 17:59 | NUR ---
PT RESTING WITH EYES CLOSED.
--- NOTE | 2016-12-23 20:00 | NUR ---
RECEIVED REPORT AROUND 1900. PT WAS IN BED RESTING. PT SEEMS DEPRESSED. I WILL TALK TO HIM WHEN I WILL DO HIS ASSESSMENT.
--- NOTE | 2016-12-23 20:30 | NUR ---
PT REPORTS RIGHT SIDED GROIN PAIN. NON EDEMA OR REDNESS NOTED. MD VILLA WAS NOTYFIED. I WILL MONITOR FOR NOW. ILEOSTOMY IS PUTTING OUT WELL. ALL LOBES ARE CLEAR, URQ AND ULQ HAVE BOWEL TONES PRESENT. PERIPHERAL EDEMA IN ARMS AND LEGS IS +1. PT HAS A HARD TIME COPING WITH HIS NEW SITUATION AND EVERYTHING THAT HAS TRANSPIRED SINCE HIS ADMISSION HERE. HE HAS TALKED TO PASTOR RHODES IN THE PAST. HE MAY NEED SOME ADDIOTIONAL HELP WITH COPING.
--- NOTE | 2016-12-24 00:30 | NUR ---
PT AT THIS TIME IS SLEEPING.
--- NOTE | 2016-12-24 03:17 | NUR ---
ASSISTED PT TO BATHROOM. PT IS DOING WELL WALKING. PT HAD SOME PAIN IN GROIN AREA ON HIS RIGHT SIDE WHILE WALKING. PT STATED THAT PRN PAIN MED GIVEN EARLIER HELPED HIM.
--- NOTE | 2016-12-24 04:50 | NUR ---
PT HAD UNEVENTFUL NIGHT. PT IS COMPLAINING OF PAIN IN HIS RIGHT GROIN AREA. MD VILLA IS AWARE. WILL CONTINUE TO MONITOR. PAIN IS WORSE WHEN WALKING. PT IS STILL STRUGGLING WITH HIS NEW SITUATION. PT MAY NEED TO TALK TO A COUNSELOR.
--- NOTE | 2016-12-24 06:04 | NUR ---
PT JUST HAD SUDDEN ONSET OF NAUSEA. 4MG OF SL ZOFRAN WAS GIVEN. PT FEELS BETTER NOW. GAVE HIM SOME SALTINE CRACKERS. BOWEL SOUNDS ARE PRESENT.
--- NOTE | 2016-12-24 10:06 | NUR ---
VISITED WITH PT. HE WAS SITTING IN CHAIR LOOKING OUT THE WINDOW. HE MENTIONED THAT HE HAS DECIDED HE NEEDS TO GO TO [facility] WITH FAMILY FOR HIS CARE-BUT HE REALLY WANTS TO GO HOME. THIS IS A VERY DIFFICULT TRANSITION IN HIS LIFE. IT IS NOT AN EASY ONE, AND STAFF ARE ALL TRYING REALLY HARD TO BE SENSITIVE TO HIS NEEDS, WHILE STILL HELPING HIM HEAL AND ADJUST. WILL CONTINUE TO FOLLOW. GOD BLESS HIM
--- NOTE | 2016-12-24 10:50 | NUR ---
PT AWAKE AT SHIFT CHANGE NON-PARTICAPATORY. ASSISTED TO CHAIR PT EATS A FEW BITES OF BREAKFAST RETURNS TO BED. PT TO TOILET UNABLE TO OPEN OSTOMY BAG TO EMPTY, NEW BAG APPLIED WITH HELP FROM STAFF. PT UP TO WORK WITH P/T WELL O/T SITTING IN CHAIR CURRENTLY.
--- NOTE | 2016-12-24 13:24 | NUR ---
PT REFUSES MEAL. ENCOURAGED TO AT LEAST DRINK HIS ENSURE REMINDED PT OF NEED TO REGAIN HIS STRENGTH. STATES HE IS JUST NOT HUNGRY. PT REMAINS RESTING IN BED EYES CLOSED
--- NOTE | 2016-12-24 13:52 | NUR ---
YOVANI OSPINA SHARED WITH ME SOME MILD CONCERN THAT PT IS STILL STRUGGLING WITH THE CHANGE IN HIS LIFE THE RESULT OF HIS SURGERY. HE FEELS HIS LIFE HAS COME TO AN ABRUBT CHANGE, AND HIS SELF SUSTAINING LIFE STYLE IS MAYBE NO LONGER AVAILABLE. I VISITED WITH HIM, HE IS HONEST WITH ME ABOUT THE STRUGGLE HE IS HAVING. I ENCOURAGED HIM TO REMEMBER HE IS NOT GOING THROUGH THIS ALONE, AND THE HELP THAT IS AT HIS AID WANTS TO HELP HIM GET BACK ON HIS FEET-BUT THERE IS SOME EFFORT ON HIS PART THAT NEEDS TO HAPPEN. HE AGREED, LET ME PRAY FOR HIM. STAFF WILL COME IN SHORTLY AND GET HIM UP AND IN THE CHAIR, A DIFFERENT VIEW. GOD BLESS HIM, WILL FOLLOW NEEDED
--- NOTE | 2016-12-24 14:14 | NUR ---
PT UP TO THE TOILET THEN TO CHAIR, SELF INITIATED FOR THE FIRST TIME TODAY. DENIES NEED OF PAIN MEDICATION HAS H20 AND ENSURE WELL SNACKS IN ARMS REACH. CALL LIGHT IN LAP
--- NOTE | 2016-12-24 16:46 | NUR ---
PT AWAKE RESTING UPRIGHT IN BED. DENIES NEEDS OF
--- NOTE | 2016-12-24 20:00 | NUR ---
RECEIVED REPORT AT 1900. FOUND PT IN BED WITH FAMILY AT BEDSIDE. PO INTAKE IS VERY POOR AND PT IS NOT MOTIVATED AT ALL TO DEAL WITH HIS ILEOSTOMY. PT IS DEPRESSED AND WITHDRAWN. PT STATED THAT HE IS RESENTING HIS ILEOSTOMY. CAN TOOK V/S AT 1930, HR WAS 120'S, BP 120/45, RR 24. ALL LOBES WERE CLEAR, PT DENIED PAIN OR SOB OR ANY OTHER DISTRESS, BOWEL SOUNDS ARE ALSO PRESENT. MD IYER WAS CALLED AND ORDER FOR ABG, LABS AND C-PAP AND CHEST X-RAY WAS GIVEN.
--- NOTE | 2016-12-24 23:25 | NUR ---
PT WORE C-PAP FOR ABOUT 1/2 HR AND THEN REFUSED. PT IS VERY WITHDRAWN AND NOT REALLY UP FOR ANY FORM OF COMMUNICATION. PT IS IN BED AT THIS TIME.
--- NOTE | 2016-12-25 00:41 | NUR ---
PT IS IN BED RESTING. PT WOULD LIKE TO BE LEFT ALONE AT THIS TIME.
--- NOTE | 2016-12-25 02:12 | NUR ---
PT IS RESTING AT THIS TIME.
--- NOTE | 2016-12-25 05:03 | NUR ---
PT AT THIS TIME IS STILL SLEEPING. AT START OF SHIFT, PT HAD V/S THAT WERE NOT WNL. MD IYER WAS NOTIFIED. ABG, LABS AND C-PAP WAS ORDERED. PT WORE C-PAP FOR ABOUT A 1/2 HOUR AND HAS REFUSED IT SINCE. PT WANTED TO BE LEFT ALONE AND I HONORED HIS WISHES. I HAVE POKED MY HEAD IN HIS ROOM SEVERAL TIMES THIS SHIFT AND HE WAS RESTING EACH TIME. PT IS DEPRESSED AND WITHDRAWN DUE TO HIS NEW SITUATION IN REGARDS TO HIS ILEOSTOMY.
--- NOTE | 2016-12-25 06:55 | NUR ---
BEDSIDE HAND OFF REPORT RECEIVED FROM BEADING INSTALLER RN. PT RESTING IN BED. PT DENIES NEEDS AT THIS TIME.
--- NOTE | 2016-12-25 09:47 | NUR ---
PT WORKING WITH OCCUPATIONAL THERAPY. PT LUNG SOUNDS CLEAR WITH COARSE LEFT LOWER LOBE, O2 SATS 94% ON 2L NC. PT BLOOD PRESSURE 114/41, HR 120'S, GIVEN METOPROLOL. ALLOWIGN TIME WITH OCCUPATIONAL THERAPIST.
--- NOTE | 2016-12-25 11:33 | NUR ---
PT DAUGHTER WENDY CALLED AND LEFT A MESSAGE FOR ME TO PLEASE GIVE HER A CALL SHE HAD SOME CONCERNS SHE WANTED TO DISCUSS. CALLED HER BACK, SHE STATED THAT SHE WAS CONCERNED SHE HAD NOTICED A CHANGE IN HER DAD THAT HE LOOKED MORE DEPRESSED, WE TALKED ABOUT SEVERAL POSS REASONS FOR THIS--BEING IN THE HOSPITAL FOR SO LONG, ALSO GRIEVING FOR THE LOSS OF NORMAL BODILY FUNCTIONA ND HAVING TO ACCEPT HIS ILEOSTOMY. SHE ALSO MENTIONED THAT HE TOLD HER HE IS NOT EATING BECAUSE HE IS NAUSEATED--TOLD HER I WOULD TALK TO THE DR AND SEE IF THERE WAS SOMETHING THAT COULD BE ORDERED AC. TALKED WITH DR IYER AND HE CHANGED THE ZOFRAN TO AC TID. DR IYER AND I ALSO TALKED ABOUT SETTING A MOVE OUT DATE FOR THE PT OF WEDNESDAY TO SEE IF THAT HELPED HIS SPIRITS, DAUGHTER AND DR IYER THINK THIS IS A GOOD IDEA. I THEN TALKED WITH THE PT ABOUT THIS INFORMATION AND PT SEEMED ENCOURAGED BY THIS. WE ALSO TALKED ABOUT HIS NAUSEA AND I TOLD HIM THE DR HAD CHANGED THE ORDERS FOR HIM TO HAVE ANTINAUSEA MEDS BEFORE MEALS TO SEE IF THAT HELPED WITH THE NAUSEA. ALSO ASKED HIM IF HE WAS ASKING FOR HIS HEMMORHOID CREAM FOR THAT ISSUE AND HE SAID HE WAS. CALLED [facility] IN [facility] AND INFORMED THEM ABOUT THIS PT COMING. WILL SEND CHART NOTES TODAY. CALLED WENDY HIS DAUGHTER BACK AND INFORMED HER OF THE PLAN AND SHE THOUGHT THIS WAS A GOOD PLAN.
--- NOTE | 2016-12-25 11:54 | NUR ---
PT COMPLETED SESSION WITH PHYSICAL THERAPIST. PT SITTING N EDGE OF BED. PT EDUCATION ON ILEOSTOMY, PT ATTEMPTED TO EMPTY BAG, PT DOES NOT HAVE DEXTERITY TO OPEN CLAMP. PT ABLE TO CLEAN END OF BAG BUT HAD DIFFICULTY CLOSING BAG. DISCUSSED WITH PT AND FAMILY POSSIBILITY TO GET DIFFERENT APPLIANCES THAT MAY BE EASIER TO OPEN AND CLOSE. DISCUSSED WITH CASE MANAAGEMENT. PT CONTINUES TO BE TACHYPNIC AND TACHYCARDIC, PT VOIDING TEA COLORED URINE. MD NOTIFIED. MD TO ORDER LR FLUID BOLUS, LABS AND RULE CT FOR RULE OUT PE.
--- NOTE | 2016-12-25 14:42 | NUR ---
PT RETURNED FROM CT SCAN. IV FLUID BOLUS INFUSING. ILEOSTOMY BAG EMPTIED. PT RESTING ING BED. PT DENIES NEEDS AT THIS TIME.
--- NOTE | 2016-12-25 20:31 | EKG ---
[facility] [address] [facility] [place] [address] Signed Sinus tachycardia with occasional premature ventricular complexes Abnormal QRS-T angle, consider primary T wave abnormality Abnormal ECG When compared with ECG of 29-NOV-2016 22:09, premature atrial complexes are no longer present QRS duration has decreased Confirmed by LUCIAN IYER MD ([id number]) on 12/25/2016 8:31:12 PM Electronically Signed By: LUCIAN IYER MD 12/25/16 2031 PATIENT NAME: JEWELS DANIEL Electrocardiogram DATE OF : 38 PHYSICIAN: LUCIAN IYER MD REPORT #: [id number] REPORT IS CONFIDENTIAL AND NOT TO BE RELEASED WITHOUT AUTHORIZATION
== END 2016-12-25 15:15 | disposition short-term general hospital (02) | DRG 385 ==
LOC: MS 10:30
PROVIDERS: ADMIT Internal Medicine
DX: K50.118 Crohn's disease of large intestine with other complication (principal); J96.01 Acute respiratory failure with hypoxia; I47.2 Ventricular tachycardia; J95.89 Other postprocedural complications and disorders of respiratory system, not elsewhere classified; J98.11 Atelectasis; K52.9 Noninfective gastroenteritis and colitis, unspecified; I10 Essential (primary) hypertension; Z93.3 Colostomy status; R73.03 Prediabetes; D69.6 Thrombocytopenia, unspecified; Z85.46 Personal history of malignant neoplasm of prostate
CPT/HCPCS: 36415; 36600; 71010; 71260; 80053; 82803; 83735; 85025; 86022; 93005; 93010; 94640; 94660; 94667; 94668; 94760; 97110; 97116; 97162; 97165; 97530; 97535; J2550; J7120; Q9967

== ENCOUNTER 2016-12-25 15:15 | Inpatient (IN) | payer MEDICARE, OTHER ==
[~2016-12-25] VITALS: Ht 177.8 cm; Wt 77.2 kg
--- NOTE | 2016-12-25 15:55 | NUR ---
PT TO CT WITH BUSINESS INTELLIGENCE ENGINEER. PT TRANSPORTED VIA BED. PT WITH INCREASED OXYGEN DEMAND, ON 4L NC.
--- NOTE | 2016-12-25 16:00 | NUR ---
ADMISSION COMPLETED. PT RESTING IN BED. IV FLUIDS INFUSIN D5LR AT 125 ML/HR. PT NPO AT THIS TIME. PT DENIES NEEDS. FAMILY AT BEDSIDE.
--- NOTE | 2016-12-25 17:59 | NUR ---
PT FAMILY AT BEDSIDE. DISCUSSED PLAN OF CARE AND ANSWERED QUESTIONS ABOUT TRANSFER. PT DENIES NEEDS AT THIS TIME. MAGNESIUM INFUSING.
--- NOTE | 2016-12-25 19:25 | NUR ---
Asked several times but refused to take a shower yesterday and today.
--- NOTE | 2016-12-25 19:56 | NUR ---
REPORT CALLED TO [facility] NURSE GABBY. BEDSIDE REPORT GIVEN TO [employer] CREW. TRANSFER PACKET PROVIDED. [place] GGT SWITCHED TO FLIGHT CREW INFUSION PUMP, GGT RATE CONFIRMED WITH CREW.
== END 2016-12-25 20:00 | disposition short-term general hospital (02) | DRG 385 ==
LOC: MS 15:15
PROVIDERS: ADMIT Internal Medicine
DX: K50.114 Crohn's disease of large intestine with abscess (principal); I26.99 Other pulmonary embolism without acute cor pulmonale; J96.01 Acute respiratory failure with hypoxia; E46 Unspecified protein-calorie malnutrition; J98.11 Atelectasis; J90 Pleural effusion, not elsewhere classified; D69.59 Other secondary thrombocytopenia; T45.515A Adverse effect of anticoagulants, initial encounter; D64.9 Anemia, unspecified; I10 Essential (primary) hypertension; Z85.46 Personal history of malignant neoplasm of prostate; R73.03 Prediabetes; Z93.3 Colostomy status
CPT/HCPCS: 36415; 71010; 74178; 85730; 97535; J0883; J3475; J7120; Q9967